=== PATIENT | female | born 1935 | race Caucasian/White ===

== ENCOUNTER 2022-03-29 08:24 | Outpatient (CLI) | payer SELFPAY ==
--- NOTE | 2022-03-29 08:34 | MM_ITS ---
WS: [id number] DIAGNOSTIC BILATERAL DIGITAL BREAST TOMOSYNTHESIS MAMMOGRAPHY WITH CAD Bilateral breast ultrasound, limited HISTORY: breast mass right COMPARISON: None available. TECHNIQUE: Bilateral craniocaudad, mediolateral oblique, and mediolateral views are submitted with to daniel and AME. Computer aided detection utilized. Breast composition: There are scattered areas of fibroglandular density. There is a dense spiculated mass extending to the skin in the upper outer quadrant of the RIGHT breast. Mass measures approximate ly 3.7 x 2.5 cm. There are a few scattered punctate calcifications within the spiculated mass. There is an additional spiculated mass along the posterior LEFT chest wall seen best on the LEFT CC project ion. Only a very small portion of this mass is identified but is spiculated and of increased density. The nipple is retracted. This mammographic evaluation is very difficult and limited due to the patient's kyphosis. No lymph no yu are identified towards the axilla. Bilateral breast ultrasound, limited. RIGHT breast: Lobulated soft tissue mass at 11:00, 1 cm the nipple. This mass is hypoechoic with angu lar borders extending through the skin surface. Increased vascularity throughout the mass. Mass measu res at least 3.5 x 2.2 x 3.1 cm and extends to the posterior chest wall. There is an additional abnor mal lymph node in the RIGHT axilla measuring 1.7 x 2.4 x 2.1 cm. There is at least one and possibly 2 abnormal lymph nodes. LEFT breast: Incompletely visualized soft tissue mass seen on mammography corresponds to a hypoechoic irregular mass with increased vascularity at 12:00, 1 cm from the nipple. This mass measures 3.0 x 1 .7 x 2.5 cm. This also is very close to the skin surface towards 11:00. No LEFT axillary abnormal lym ph nodes. MM/[place] [id number] IMPRESSION: BI-RADS: 5-Highly Suggestive of Malignancy FOLLOW UP: Biopsy Recommended Bilateral breast masses highly suspicious for advanced breast cancer. Suspiciou s RIGHT axillary lymph node for metastatic disease. These can be further evalua nelsy by oncology. Ultrasound-guided biopsy can be performed. Notified Notified Bárbara Pimentel DO at 03/29/2022 1:40 PM.
== END 2022-03-29 08:25 | disposition home or self-care (01) ==
PROVIDERS: Visit Provider Surgery
DX: N63.11 Unspecified lump in the right breast, upper outer quadrant (principal); N63.25 Unspecified lump in the left breast, overlapping quadrants
CPT/HCPCS: 76642; 77062

== ENCOUNTER → 2022-04-18 15:09 | Outpatient (BNVA) | payer MEDICARE, SELFPAY | PROVIDERS: Visit Provider Family Medicine | DX: Z76.89 Persons encountering health services in other specified circumstances (principal); N63.10 Unspecified lump in the right breast, unspecified quadrant; N63.20 Unspecified lump in the left breast, unspecified quadrant; Z79.899 Other long term (current) drug therapy | CPT/HCPCS: 80053; 85025 ==

== ENCOUNTER 2022-04-21 10:57 | Outpatient (CLI) | payer MEDICARE, SELFPAY ==
[2022-04-21 12:01] LABS: Basophils # 0.1 10^3/uL (0.0-0.1); Eosinophils # 0.2 10^3/uL (0.0-0.8); Eosinophils % 2.5 %; Hematocrit 44.4 % (37.0-47.0); Lymphocytes # 1.7 10^3/uL (0.8-4.8); Lymphocytes % 22.2 %; Mean Corpuscular HGB Conc 31.5 g/dL (30.0-36.0); Mean Corpuscular Hemoglobin 30.4 pg (28.0-34.0); Mean Corpuscular Volume 96.3 fl (81-99); Mean Platelet Volume 10.4 fL (7.4-10.4); Monocytes # 0.8 10^3/uL (0.2-0.9); Monocytes % 10.6 %; Neutrophils # 4.88 10^3/uL (1.8-7.7); Neutrophils % 63.6 %; Nucleated Red Blood Cells % 0 %; Platelet Count 290 10^3/cmm (130-400); Red Blood Count 4.61 10^6/uL (4.1-5.3); Red Cell Distribution Width 12.9 % (12.1-15.1); White Blood Count 7.7 10^3/uL (4.0-10.0)
[2022-04-21 12:24] LABS: Alanine Aminotransferase 9 U/L (0-33); Alkaline Phosphatase 100 U/L (35-105); Anion Gap 13.2 (5-19); Aspartate Amino Transferase 16 U/L (0-32); Blood Urea Nitrogen 14 mg/dL (8-23); Calcium 9.3 mg/dL (8.5-10.5); Carbon Dioxide 27 mmol/L (22-29); Chloride 104 mmol/L (98-107); Globulin 3.2 g/dL (1.3-4.6); Glucose 91 mg/dL (65-115); Osmolality Calculated 290 mOsm/kg (285-295); Potassium 4.2 mmol/L (3.5-5.1); Sodium 140 mmol/L (136-145); Total Bilirubin 0.4 mg/dL (0.15-1.2); Total Protein 7.2 g/dL (6.6-8.7)
== END 2022-04-21 10:58 | disposition home or self-care (01) ==
LOC: LAB 11:02
PROVIDERS: PCP Family Medicine; Visit Provider Family Medicine
DX: Z76.89 Persons encountering health services in other specified circumstances (principal); N63.10 Unspecified lump in the right breast, unspecified quadrant; N63.20 Unspecified lump in the left breast, unspecified quadrant
CPT/HCPCS: 80053; 85025

== ENCOUNTER 2022-04-27 11:01 | Outpatient (CLI) | payer MEDICARE, SELFPAY ==
--- NOTE | 2022-04-27 | US_ITS ---
WS: [id number] ULTRASOUND-GUIDED RIGHT BREAST BIOPSY CLINICAL INFORMATION: RIGHT breast mass. RIGHT axillary biopsy. FINDINGS: The procedure including risks, benefits, and complications were discussed with the patient who agreed to proceed. Using sterile technique patient was prepped and draped in the usual sterile fashion. Aft er 1% lidocaine utilizing real-time ultrasound guidance 5 14-gauge cores were obtained of the RIGHT b reast lesion at the 11 o'clock position. Subsequently a titanium clip was placed in the biopsy cavity . [place] DigitalurMark Top cone marker. Next 2 samples were obtained of the RIGHT axillary mass. LOAG Ribbon biopsy marker Pathology demonstrates A. 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 - Johnson Huerta grade 2 (score 6). - Breast profile has been performed and will be reported separately. B. Breast, right axilla mass , ultrasound-guided biopsy: - Invasive ductal carcinoma. - Johnson Huerta grade 2 (score 6). - Right axilla is involved with carcinoma. C. Breast, left breast mass, 12:00, 1 cm from nipple , ultrasound-guided biopsy: - Invasive ductal carcinoma with intraluminal microcalcifications. - Johnson Huerta grade 2 (score 6). - Breast profile has been performed and will be reported separately. D. Breast, left breast mass, 2:00, 1 cm from nipple , ultrasound-guided biopsy: - Invasive ductal carcinoma. - Johnson Huerta grade 1 (score 4). US/[place] [id number] IMPRESSION: 1. Uncomplicated ultrasound-guided RIGHT breast and RIGHT axillary biopsy. 2. Ultrasound-guided biopsy LEFT breast mass at the 12:00 and 2:00 positions. 3. The pathology demonstrates: A. 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 B. Breast, right axilla mass - Invasive ductal carcinoma. C. Breast, left breast mass, 12:00, 1 cm from nipple - Invasive ductal carcinoma with intraluminal microcalcifications. D. Breast, left breast mass, 2:00, 1 cm from nipple - Invasive ductal carcinoma. RECOMMEND BREAST SURGERY CONSULTATION. BI-RADS: 6-Known Biopsy-Proven Malignancy FOLLOW UP: Surgical Biopsy Recommended
--- NOTE | 2022-04-27 11:32 | US_ITS ---
WS: [id number] ULTRASOUND-GUIDED RIGHT BREAST BIOPSY CLINICAL INFORMATION: RIGHT breast mass. RIGHT axillary biopsy. FINDINGS: The procedure including risks, benefits, and complications were discussed with the patient who agreed to proceed. Using sterile technique patient was prepped and draped in the usual sterile fashion. Aft er 1% lidocaine utilizing real-time ultrasound guidance 5 14-gauge cores were obtained of the RIGHT b reast lesion at the 11 o'clock position. Subsequently a titanium clip was placed in the biopsy cavity . UGEurMark Top portable track line marker. Next 2 samples were obtained of the RIGHT axillary mass. [employer] Ribbon biopsy marker Pathology demonstrates A. 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 - Johnson Huerta grade 2 (score 6). - Breast profile has been performed and will be reported separately. B. Breast, right axilla mass , ultrasound-guided biopsy: - Invasive ductal carcinoma. - Johnson Huerta grade 2 (score 6). - Right axilla is involved with carcinoma. C. Breast, left breast mass, 12:00, 1 cm from nipple , ultrasound-guided biopsy: - Invasive ductal carcinoma with intraluminal microcalcifications. - Johnson Huerta grade 2 (score 6). - Breast profile has been performed and will be reported separately. D. Breast, left breast mass, 2:00, 1 cm from nipple , ultrasound-guided biopsy: - Invasive ductal carcinoma. - Johnson Huerta grade 1 (score 4). US/[place] [id number] IMPRESSION: 1. Uncomplicated ultrasound-guided RIGHT breast and RIGHT axillary biopsy. 2. Ultrasound-guided biopsy LEFT breast mass at the 12:00 and 2:00 positions. 3. The pathology demonstrates: A. 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 B. Breast, right axilla mass - Invasive ductal carcinoma. C. Breast, left breast mass, 12:00, 1 cm from nipple - Invasive ductal carcinoma with intraluminal microcalcifications. D. Breast, left breast mass, 2:00, 1 cm from nipple - Invasive ductal carcinoma. RECOMMEND BREAST SURGERY CONSULTATION. BI-RADS: 6-Known Biopsy-Proven Malignancy FOLLOW UP: Surgical Biopsy Recommended
--- NOTE | 2022-04-27 11:32 | US_ITS ---
WS: [id number] ULTRASOUND-GUIDED RIGHT BREAST BIOPSY CLINICAL INFORMATION: RIGHT breast mass. RIGHT axillary biopsy. FINDINGS: The procedure including risks, benefits, and complications were discussed with the patient who agreed to proceed. Using sterile technique patient was prepped and draped in the usual sterile fashion. Aft er 1% lidocaine utilizing real-time ultrasound guidance 5 14-gauge cores were obtained of the RIGHT b reast lesion at the 11 o'clock position. Subsequently a titanium clip was placed in the biopsy cavity . iPointerurMark Top pattern marker. Next 2 samples were obtained of the RIGHT axillary mass. [employer] Ribbon biopsy marker Pathology demonstrates A. 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 - Johnson Huerta grade 2 (score 6). - Breast profile has been performed and will be reported separately. B. Breast, right axilla mass , ultrasound-guided biopsy: - Invasive ductal carcinoma. - Jhonson Huerta grade 2 (score 6). - Right axilla is involved with carcinoma. C. Breast, left breast mass, 12:00, 1 cm from nipple , ultrasound-guided biopsy: - Invasive ductal carcinoma with intraluminal microcalcifications. - Johnson Huerta grade 2 (score 6). - Breast profile has been performed and will be reported separately. D. Breast, left breast mass, 2:00, 1 cm from nipple , ultrasound-guided biopsy: - Invasive ductal carcinoma. - Johnson Huerta grade 1 (score 4). US/US biopsy lymph node breast/ax IMPRESSION: 1. Uncomplicated ultrasound-guided RIGHT breast and RIGHT axillary biopsy. 2. Ultrasound-guided biopsy LEFT breast mass at the 12:00 and 2:00 positions. 3. The pathology demonstrates: A. 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 B. Breast, right axilla mass - Invasive ductal carcinoma. C. Breast, left breast mass, 12:00, 1 cm from nipple - Invasive ductal carcinoma with intraluminal microcalcifications. D. Breast, left breast mass, 2:00, 1 cm from nipple - Invasive ductal carcinoma. RECOMMEND BREAST SURGERY CONSULTATION. BI-RADS: 6-Known Biopsy-Proven Malignancy FOLLOW UP: Surgical Biopsy Recommended
--- NOTE | 2022-04-27 11:32 | US_ITS ---
WS: [id number] ULTRASOUND-GUIDED LEFT BREAST BIOPSY CLINICAL INFORMATION: masses bilat breasts COMPARISON: None. FINDINGS: The procedure including risks, benefits, and complications were discussed with the patient who agreed to proceed. Using sterile technique patient was prepped and draped in the usual sterile fashion. Aft er 1% lidocaine utilizing real-time ultrasound guidance 3 14-gauge cores were obtained of the LEFT br east lesion at the 12 o'clock position. Subsequently a titanium clip was placed in the biopsy cavity. SecurMark biopsy marker Top Hat. Next, after 1% lidocaine, utilizing ultrasound guidance, 3 14-gauge cores were obtained of the LEFT b reast lesion at the 2:00 position.Subsequently a titanium clip was placed in the biopsy cavity. BARD biopsy marker Ribbon. ULTRASOUND-GUIDED RIGHT BREAST BIOPSY CLINICAL INFORMATION: RIGHT breast mass. RIGHT axillary biopsy. FINDINGS: The procedure including risks, benefits, and complications were discussed with the patient who agreed to proceed. Using sterile technique patient was prepped and draped in the usual sterile fashion. Aft er 1% lidocaine utilizing real-time ultrasound guidance 5 14-gauge cores were obtained of the RIGHT b reast lesion at the 11 o'clock position. Subsequently a titanium clip was placed in the biopsy cavity . SecurMark Top memorial marker designer. Next 2 samples were obtained of the RIGHT axillary mass. [place] Ribbon biopsy marker Pathology demonstrates A. 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 - Johnson Huerta grade 2 (score 6). - Breast profile has been performed and will be reported separately. B. Breast, right axilla mass , ultrasound-guided biopsy: - Invasive ductal carcinoma. - Johnson Huerta grade 2 (score 6). - Right axilla is involved with carcinoma. C. Breast, left breast mass, 12:00, 1 cm from nipple , ultrasound-guided biopsy: - Invasive ductal carcinoma with intraluminal microcalcifications. - Johnson Huerta grade 2 (score 6). - Breast profile has been performed and will be reported separately. D. Breast, left breast mass, 2:00, 1 cm from nipple , ultrasound-guided biopsy: - Invasive ductal carcinoma. - Johnson Huerta grade 1 (score 4). US/[place] [id number] IMPRESSION: 1. Uncomplicated ultrasound-guided RIGHT breast and RIGHT axillary biopsy. 2. Ultrasound-guided biopsy LEFT breast mass at the 12:00 and 2:00 positions. 3. The pathology demonstrates: A. 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 B. Breast, right axilla mass - Invasive ductal carcinoma. C. Breast, left breast mass, 12:00, 1 cm from nipple - Invasive ductal carcinoma with intraluminal microcalcifications. D. Breast, left breast mass, 2:00, 1 cm from nipple - Invasive ductal carcinoma. RECOMMEND BREAST SURGERY CONSULTATION. BI-RADS: 6-Known Biopsy-Proven Malignancy FOLLOW UP:
[2022-04-28 13:49] LABS: Lymphoma Profile (BBPL) See Report
[2022-05-02 12:04] LABS: Breast Profile ER,PR,HER2,Ki-6 See Report
== END 2022-04-27 11:02 | disposition home or self-care (01) ==
LOC: RAD 11:05
PROVIDERS: PCP Family Medicine; Visit Provider Emergency Medicine
DX: R92.8 Other abnormal and inconclusive findings on diagnostic imaging of breast (principal); C50.411 Malignant neoplasm of upper-outer quadrant of right female breast; C50.812 Malignant neoplasm of overlapping sites of left female breast
CPT/HCPCS: 19083; 19084; 38505; 76942; 88184; 88185; 88305; 88361; 88374

== ENCOUNTER → 2022-05-04 14:08 | Outpatient (BNVA) | payer MEDICARE, SELFPAY | PROVIDERS: PCP Family Medicine; Visit Provider Internal Medicine Hematology & Oncology | DX: C50.811 Malignant neoplasm of overlapping sites of right female breast (principal); C50.812 Malignant neoplasm of overlapping sites of left female breast; Z17.0 Estrogen receptor positive status [ER+]; Z90.13 Acquired absence of bilateral breasts and nipples; Z79.818 Long term (current) use of other agents affecting estrogen receptors and estrogen levels | CPT/HCPCS: 99204 ==

== ENCOUNTER 2022-06-03 09:53 | Oncology outpatient (recurring) (ONCR) | payer MEDICARE, SELFPAY ==
[2022-06-03 10:31] LABS: Basophils # 0.1 10^3/uL (0.0-0.1); Basophils % 0.8 %; Eosinophils # 0.1 10^3/uL (0.0-0.8); Eosinophils % 1.6 %; Hematocrit 41.5 % (37.0-47.0); Lymphocytes # 1.4 10^3/uL (0.8-4.8); Lymphocytes % 21.9 %; Mean Corpuscular HGB Conc 31.3 g/dL (30.0-36.0); Mean Corpuscular Hemoglobin 29.7 pg (28.0-34.0); Mean Corpuscular Volume 94.7 fl (81-99); Mean Platelet Volume 10.4 fL (7.4-10.4); Monocytes # 0.5 10^3/uL (0.2-0.9); Monocytes % 7.7 %; Neutrophils # 4.24 10^3/uL (1.8-7.7); Neutrophils % 67.7 %; Nucleated Red Blood Cells % 0 %; Platelet Count 316 10^3/cmm (130-400); Red Blood Count 4.38 10^6/uL (4.1-5.3); Red Cell Distribution Width 12.8 % (12.1-15.1); White Blood Count 6.3 10^3/uL (4.0-10.0)
[2022-06-03 10:45] LABS: Alanine Aminotransferase 11 U/L (0-33); Albumin Level 3.9 g/dL (3.5-5.2); Alkaline Phosphatase 89 U/L (35-105); Anion Gap 12.2 (5-19); Aspartate Amino Transferase 15 U/L (0-32); Blood Urea Nitrogen 18 mg/dL (8-23); Calcium 9.2 mg/dL (8.5-10.5); Carbon Dioxide 28 mmol/L (22-29); Chloride 104 mmol/L (98-107); Globulin 2.7 g/dL (1.3-4.6); Glucose 130 mg/dL (65-115); Osmolality Calculated 294 mOsm/kg (285-295); Potassium 4.2 mmol/L (3.5-5.1); Sodium 140 mmol/L (136-145); Total Bilirubin 0.3 mg/dL (0.15-1.2); Total Protein 6.6 g/dL (6.6-8.7)
== END 2022-06-29 23:59 | disposition home or self-care (01) ==
PROVIDERS: PCP Family Medicine; Visit Provider Internal Medicine Hematology & Oncology
DX: C50.811 Malignant neoplasm of overlapping sites of right female breast; C50.812 Malignant neoplasm of overlapping sites of left female breast; Z17.0 Estrogen receptor positive status [ER+]; C77.3 Secondary and unspecified malignant neoplasm of axilla and upper limb lymph nodes; Z79.811 Long term (current) use of aromatase inhibitors
CPT/HCPCS: 36415; 80053; 85025; 99214

== ENCOUNTER → 2022-06-21 10:01 | Outpatient (BNVA) | payer MEDICARE, SELFPAY | PROVIDERS: PCP Family Medicine; Visit Provider Surgery | DX: C50.911 Malignant neoplasm of unspecified site of right female breast (principal); C50.912 Malignant neoplasm of unspecified site of left female breast; Z17.0 Estrogen receptor positive status [ER+]; C50.811 Malignant neoplasm of overlapping sites of right female breast; C50.812 Malignant neoplasm of overlapping sites of left female breast | CPT/HCPCS: 99213 ==

== ENCOUNTER 2022-07-14 16:50 | Inpatient (IN) | payer MEDICARE, SELFPAY ==
[2022-07-14] VITALS (17 sets, daily range): BP systolic 98–178; BP diastolic 56–87; PULSE 52–84; RESP 14–20; TEMP 36.2–36.6; O2SAT 94–100
--- NOTE | 2022-07-14 07:49 | NM_ITS ---
WS: [id number] SENTINEL NODE TECHNIQUE: LEFT sentinel node injection CLINICAL INFORMATION: left sentinel lymph node biopsy COMPARISON: None. PROCEDURE: The procedure including risks, benefits, and complications were discussed; the patient agr eed to proceed. Patient was prepped and draped in usual sterile fashion. Subsequently, 1 aliquots of filtered technetium 99m tilmanocept lymphoseek was injected into the subcutaneous soft tissues upper outer breast. A total dose of 1.09 mCi was administered. Patient tolerated the procedure well with no immediate complications. AL/AL sentinel node inject [id number] IMPRESSION: Uncomplicated LEFT breast sentinel node injection with a total dose of 1.09 mCi .
--- NOTE | 2022-07-14 08:38 | PC.NURSE ---
patient was injected with 1.09 mCi Tc99m Tilmanocept Lymphoseek at 0825 in the upper right quadrant of the left breast. approximately 1-2:00 position.
--- NOTE | 2022-07-14 08:41 | P.ANESASSM_ITS ---
Pre-Anesthetic Assessment Height/Weight: Height 1.6 m Weight 46.72 kg Preop Diagnosis: Bilateral breast cancer Operation Date: 07/14/22 11:25 Proposed Procedures p 43814, 73240, 23995, 42689, 79584 bilateral mastectomy, right axillary node diction, left sentinel node bx Modified radical on the right and simple on the left, C50.911,C50.912,Z17.0(Bilateral) - Broderick Salgado DO s Axillary Node Dissection(Right) - Broderick Salgado DO s Sentinal Lymph Node Biopsy(Left) - Broderick Salgado DO Familial anesthetic complications: none Was Beta Krysta taken within 24 hours: N/A Was Clonidine taken within 24 hours: N/A Last intake: > 8hrs Social No alcohol and No tobacco Exam alert, oriented x 3, clear to auscultation bilaterally and regular rate & rhythm Airway Mallampati: Class II Dentition: false GI Gastroesophageal Reflux Disease and Peptic Ulcer Disease partial gastrectomy [facility] b/l breast cancer Anesthetic Plan ASA status: 3 Anesthesia: General Risk of > 500 ml blood loss (7ml/kg in children): No Medications/Allergies Home Medications Medication Instructions Recorded Confirmed Last Taken Type anastrozole 1 mg tablet (Arimidex) 1 mg PO DAILY 2 months #90 tabs 05/04/22 07/14/22 07/13/22 Rx calcium carbonate 600 mg calcium 600 mg PO DAILY 05/16/22 07/14/22 07/13/22 History (1,500 mg) tablet (Calcium) cholecalciferol (vitamin D3) 125 125 mcg PO DAILY 05/16/22 07/14/22 07/13/22 History mcg (5,000 unit) capsule omeprazole 20 mg capsule,delayed 20 mg PO DAILY #90 caps 05/16/22 07/14/22 07/13/22 Rx release hydrocodone 7.5 mg-acetaminophen 1 tab PO BID pain 30 days #60 tabs 06/06/22 07/13/22 07/13/22 Rx 325 mg tablet Allergies Allergy/AdvReac Type Severity Reaction Status Date / Time Penicillins Allergy ALGY-Rash Verified 07/13/22 16:42 [facility] [place] Anesthesia Medical History 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
[2022-07-14] MEDS: sodium chloride 0.9% 1,000 ML 30 ML IV (08:55)
--- NOTE | 2022-07-14 10:28 | W.PM.OPSUD ---
Surgery/Procedure H&P Update DATE OF PROCEDURE: July 14, 2022 DATE H&P PERFORMED: 06/21/22 PREOP DIAGNOSIS: Bilateral breast cancer PLANNED PROCEDURE: Operation Date: 07/14/22 11:25 Proposed Procedures p 23094, 33537, 33629, 49738, 67222 bilateral mastectomy, right axillary node diction, left sentinel node bx Modified radical on the right and simple on the left, C50.911,C50.912,Z17.0(Bilateral) - DO ke Hauser Axillary Node Dissection(Right) - DO ke Hauser Sentinal Lymph Node Biopsy(Left) - Broderick Salgado DO
[2022-07-14] MEDS: vancomycin 1,000 MG in sodium chloride 0.9% 250 ML 250 MG IV (10:48)
[2022-07-14] MEDS: isosulfan blue 10 mg/mL SDV 5mL SUBCUT (11:15)
--- NOTE | 2022-07-14 13:36 | PM.OP ---
Operative Report Date of procedure: July 14, 2022 Pre-op diagnosis: Preop Diagnosis Bilateral breast cancer Post-op diagnosis: same Procedure done: Right modified radical mastectomy and left simple mastectomy with sentinel lymph node biopsy Specimens removed/disposition: Left breast and left sentinel lymph node Right breast and axillary contents Surgeon: Dr. Broderick Salgado DO Anesthesia: General Estimated blood loss (mL): 100 Complications: None apparent Brief History: This very pleasant 86-year-old female with known bilateral breast cancer. She also has an exophytic mass on the right breast and nipple inversion on the left. She was treated with anastrozole preoperatively in hopes of getting negative margins. The right breast mass went all the way to the chest wall on imaging. Right modified radical mastectomy and left mastectomy with sentinel lymph node biopsy was indicated. The risks and benefits were explained and documented. Procedure: The patient was taken to the operating room and intubated under general anesthesia after IV antibiotic had been administered the right chest and arm was prepped and draped in a sterile manner. 1% lidocaine with epinephrine was used to anesthetize the skin prior to incision. Using a 15 blade an elliptical Roberto incision was made around the right nipple areolar complex incorporating the lumpectomy scar and dermis was divided with electrocautery. Using electrocautery skin flaps were raised superiorly up to the clavicle, inferiorly to the inframammary line, medially up to the lateral edge of sternum and laterally up to the latissimus dorsi in the avascular plane. Using electrocautery the breast along with the pectoral fascia was dissected off the pectoralis muscle starting superiorly and medially and moving inferiorly and laterally. A short stitch was placed superiorly and long stitch was placed laterally using 2-0 silk suture. The lateral edge of the breast was freed along with the axillary tail . There were couple of bleeding muscular branches from the pectoral muscle which were controlled with cautery. The clavipectoral fascia was incised along the edge of the pectoralis major muscle identify the major and minor muscle. There were no palpable Catarino's nodes. The dissection was carried posteriorly to the latissimus dorsi muscle, the long thoracic nerve was identified along the serratus anterior muscle along with the lateral pectoral bundle. The pectoralis minor head was retracted superiorly to identify the axillary vein. Careful dissection was performed around the axillary vein, posterior to the pectoralis minor muscle to free the level II axillary nodes. The dissection was carried laterally, The thoracodorsal neurovascular bundle was identified posteriorly. The lymph nodes between these 2 nerves were freed. Specimen was removed and passed off en bloc. Using a 15 blade an elliptical incision was made around the left nipple areolar complex and dermis was divided with electrocautery. Skin flaps were raised superiorly up to the clavicle, inferiorly to the inframammary line, medially up to the lateral edge of sternum and laterally up to the latissimus dorsi in the avascular plane. Using electrocautery the breast along with the pectoral fascia was dissected off the pectoralis muscle starting superiorly and medially and moving inferiorly and laterally. A short stitch was placed superiorly and long stitch was placed laterally using 2-0 silk on the partially excised breast specimen. The lateral edge of the breast was freed along with the axillary tail and the specimen was removed entirely from the operative field. There were couple of bleeding muscular branches from the pectoral muscle which were controlled with cautery. The wound was irrigated with warm water and the site was reexamined to ensure adequate hemostasis. There was no active bleeding noted. A stab incision was made laterally and 19 [place] [employer] Pablo drain was placed along the inframammary fold and attached to bulb suction. The skin flaps appeared healthy and of adequate thickness. The wounds were irrigated with warm water and the site was reexamined to ensure adequate hemostasis. There was no active bleeding noted. A stab incision was made laterally and 19 [place] [employer] Pablo drain was placed along the inframammary fold and attached to bulb suction . The skin flaps appeared healthy and of adequate thickness. The dermis was approximated using running 3-0 Vicryl suture and the skin was closed using running subcuticular 4-0 Monocryl suture and Dermabond. Fluffs and a surgical bra was used for pressure dressing. Patient was transferred to the recovery room in stable condition.
[2022-07-14] MEDS: fentaNYL 50 mcg/mL INJ 2mL IVP (14:10)
[2022-07-14] MEDS: HYDROcodone-acetaminophen 7.5-325 mg Tablet 1 TAB PO (14:55)
--- NOTE | 2022-07-14 15:57 | ANE.PACU2 ---
Inpatient post-anesthesia follow up: Airway intact: Yes Vital signs: Temperature 97.2 F Pulse Rate 66 Respiratory Rate 16 Blood Pressure 132/56 Pulse Oximetry 98 Oxygen Delivery Me thod Room Air Oxygen Flow Rate 6 Fraction of Inspir ed Oxygen Hydration adequate: Yes Nausea and vomiting: No Pain level: 1 Mental status: Baseline
[2022-07-14] MEDS: docusate sodium 100 mg Capsule PO (17:11)
[2022-07-14] MEDS: heparin 5,000 unit/mL INJ 1 mL 5000 UNIT SUBCUT (17:11)
--- NOTE | 2022-07-14 17:20 | PC.NURSE ---
REPORT GIVEN TO NURSE TAKING CARE OF ROOM 277 BY RICKY DE LA FUENTE RN. PT MOVED VIA STRETCHER BY MYSELF AND ANOTHER NURSE AT 1700 TO ROOM 277 BED 2 AND CARE TURNED OVER.
[2022-07-14] MEDS: HYDROcodone-acetaminophen 5-325 mg Tablet 1 TAB PO (23:42)
[2022-07-15] VITALS: BP 126/75; PULSE 80; RESP 16; TEMP 36.7; O2SAT 97
[2022-07-15 03:55] VITALS: BP 103/64; PULSE 78; RESP 16; TEMP 37.3; O2SAT 96
--- NOTE | 2022-07-15 03:56 | PC.NURSE ---
Patients urine was blue. Nurse was notified.
[2022-07-15] MEDS: heparin 5,000 unit/mL INJ 1 mL 5000 UNIT SUBCUT (06:05)
[2022-07-15] MEDS: docusate sodium 100 mg Capsule PO (07:59)
[2022-07-15] MEDS: HYDROcodone-acetaminophen 5-325 mg Tablet 1 TAB PO ×2 (07:59→15:01)
[2022-07-15 08:00] VITALS: BP 138/68; PULSE 79; RESP 17; TEMP 36.8; O2SAT 96
[2022-07-15 12:00] VITALS: BP 138/64; PULSE 77; RESP 18; TEMP 37.1; O2SAT 97
--- NOTE | 2022-07-15 13:31 | P.DS_ITS ---
Discharge Providers Date of Admission: 07/14/22 16:50 Date of Discharge: July 15, 2022 Attending Provider at Admission: Broderick Salgado DO Attending Provider at Discharge: Broderick Salgado DO Primary Care Provider: Eleuterio Morgan DO Reason for Visit Reason for Visit: C50.911, C50.912, Z17.0 Brief History: Breast cancer Hospital Course Hospital Course There is a very pleasant 86-year-old female who was found to have bilateral breast cancer. She underwent a right modified radical mastectomy and a left mastectomy with sentinel lymph node biopsy. She stayed overnight for pain control. She is doing well in the morning and was discharged home in good condition Physical Exam Narrative: General: No acute distress, awake alert and oriented x3 Incisions intact without erythema or exudate Drain serosanguineous Discharge Data Studies Completed and Pending Completed Studies During Hospitalization Category Date Time Status NM sentinel node inject [id number] Routine Nuc Med 07/14/22 07:49 Completed Pending at discharge Category Date Time Status Pathology: Surgical [PTH] Routine Pth 07/14/22 13:41 Received Radiology Impressions [place] Node 07/14/22 07:49 IMPRESSION: Uncomplicated LEFT breast sentinel node injection with a total dose of 1.09 mCi. Procedures Performed Right modified radical mastectomy and left mastectomy with sentinel lymph node biopsy Vitals Last Vital Signs Temp 98.8 F 07/15/22 12:00 Pulse 77 07/15/22 12:00 Resp 18 07/15/22 12:00 BP 138/64 07/15/22 12:00 Pulse Ox 97 07/15/22 12:00 O2 Del Method 07/15/22 12:00 O2 Flow Rate 6 07/14/22 20:00 Discharge Plan Discharge Patient Disposition: Home Condition: Stable Prescriptions: New DOK 100 mg capsule 100 mg PO BID Qty: 20 0RF hydrocodone-acetaminophen 7.5-325 mg tablet 1 tab PO Q6H PRN (Reason: pain) Qty: 28 0RF Continued calcium carbonate [Calcium 600] 600 mg calcium (1,500 mg) tablet 600 mg PO DAILY cholecalciferol (vitamin D3) 125 mcg (5,000 unit) capsule 125 mcg PO DAILY omeprazole 20 mg capsule,delayed release(DR/EC) 20 mg PO DAILY Qty: 90 1RF anastrozole [Arimidex] 1 mg tablet 1 mg PO DAILY 60 Days Qty: 90 0RF Held hydrocodone-acetaminophen 7.5-325 mg tablet 1 tab PO BID 30 Days Qty: 60 0RF Hold Instructions: Resume on 07/22/22. Rx Instructions: Take 1/2 to 1 tab by mouth two times a day for pain. Discharge Orders: Discharge Order (Routine); Ordered 07/15/22 Ordered By: Broderick Salgado Referrals: Eleuterio Morgan DO [Primary Care Provider] - 4-7 days Broderick Salgado DO [Physician] - 2 weeks Discharge Diet: Advance as tolerated Discharge Activity: Resume usual activity Patient Instructions: Post Anesthesia Care Activity Restrictions/Additional Instructions: Do not soak incisions underwater for 2 weeks. Shower daily. Discharge Attestations Time Spent in Discharge Care*: less than 30 min Quality Metrics Clinical Quality Measures [ No reported AMI, CVA or VTE this stay] Coding Level of Care Code Acute [facility] DC note
[2022-07-19 08:15] LABS: Breast Profile ER,PR,HER2,Ki-6 See Report
== END 2022-07-15 15:13 | disposition home or self-care (01) | DRG 581 ==
LOC: MEDSURG 07-15 00:27
PROVIDERS: Admitting Provider Surgery; PCP Family Medicine; Visit Provider Surgery
PROC: 07B60ZX Excision of Left Axillary Lymphatic, Open Approach, Diagnostic (ICD-10-PCS; CPT 19303; principal; 2022-07-14 11:15)
PROC: 07B60ZX Excision of Left Axillary Lymphatic, Open Approach, Diagnostic (ICD-10-PCS; 2022-07-14 11:15)
PROC: 07B60ZX Excision of Left Axillary Lymphatic, Open Approach, Diagnostic (ICD-10-PCS; 2022-07-14 11:15)
DX: C50.812 Malignant neoplasm of overlapping sites of left female breast (principal); C50.811 Malignant neoplasm of overlapping sites of right female breast; Z17.0 Estrogen receptor positive status [ER+]; K27.9 Peptic ulcer, site unspecified, unspecified as acute or chronic, without hemorrhage or perforation; Z79.811 Long term (current) use of aromatase inhibitors; Z79.891 Long term (current) use of opiate analgesic
CPT/HCPCS: 38792; 88307; 88309; 88331; 88361; 88374; 96372; A9520; J0131; J1100; J1644; J2370; J2405; J2704; J3010; J3370; J3490; J7030; J7050; Q9968

== ENCOUNTER 2022-07-19 11:48 | Emergency (ER) | payer MEDICARE, SELFPAY ==
[2022-07-19 12:01] VITALS: BP 127/76; PULSE 85; RESP 16; TEMP 36.7; O2SAT 99
--- NOTE | 2022-07-19 12:19 | W.ED.GIBLEED ---
HPI - GI Bleed General: Chief complaint: GI Bleed Stated complaint: passing blood Time Seen by Provider: 07/19/22 12:07 Source: patient and family Mode of arrival: ambulatory Limitations: no limitations History of Present Illness: This patient's here at the behest of her family because they are concerned she is not had a bowel movement for 6 days. She apparently had a mastectomy approximately 6 days ago has been taking opiates for pain control. They apparently of been using an oral stool softener but she is still not had a bowel movement for 6 days and feels pressure. There also has been a little bit of rectal bleeding because of what the perceived is due to her attempting to push the bowel movement out. She denies abdominal pain nausea vomiting and states she has been eating and drinking normally. No fevers. No prior history of significant constipation problems. She had a prior gastrectomy for peptic ulcer disease many years ago but no other recent abdominal surgeries. She denies any other constitutional complaints at this time. Relieving factors: none Context: medication/supplement use Associated symptoms: Denies abdominal pain, chills, easy bruising, fever(s), headache(s), nausea, rash or vomiting Review of Systems Const: Denies: fever(s) or chills Eyes: Denies: change in vision ENMT: Denies: throat pain, odynophagia, nasal discharge or nasal congestion Card: Denies: chest pain, palpitations or irregular heart rhythm Resp: Denies: dyspnea or non-productive cough GI: Reports: constipation; Denies: abdominal pain, nausea, vomiting, hematochezia or melena : Denies: flank pain, difficulty voiding, dysuria or urinary frequency Musc: Denies: neck pain, back pain, extremity pain or extremity swelling Skin/Breast: Denies: rash Neuro: Denies: headache(s), numbness in extremities or weakness in extremities Abdirahman/Lymph: Denies: easy bruising or easy bleeding PFSH ED PFSH: Medical History 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, estrogen receptor positive Mass of right breast Surgical History History of partial gastrectomy Hx of tonsillectomy Social History Smoking and tobacco status: never smoked Smoking risk assessment/counseling performed?: No Alcohol intake: never Desire information about alcohol rehabilitation?: No Counseling given: No Desire information about substance/drug rehabilitation?: No Counseling given: No Female Reproductive History: Spontaneous abortions: No Physical Exam Narrative: EXAM NARRATIVE: She appears comfortable. She makes good eye contact, answers questions in a goal-directed fashion. Const: COMMON NORMALS: no acute distress, average body habitus and patient oriented x3 GENERAL APPEARANCE: cooperative and comfortable HENMT: COMMON NORMALS: normocephalic, Normal nasal mucous membranes and turbinates present, moist oral mucous membranes and oropharynx normal HEAD & SCALP: normocephalic NOSE: Normal nasal mucous membranes and turbinates present Eye: COMMON NORMALS: Equal, round and reactive pupils present, EOMs intact bilaterally and conjunctivae normal CONJUNCTIVA: Yes conjunctivae normal PUPIL: Yes Equal, round and reactive pupils present Neck/C-Spine: COMMON NORMALS: full ROM, no JVD and No carotid bruits Chest: OTHER: Post mastectomy dressing Resp: COMMON NORMALS: normal respiratory effort, No use of accessory muscles and clear to auscultation bilaterally AUSCULTATION: clear to auscultation bilaterally Cardio: COMMON NORMALS: no JVD, regular rate, regular rhythm, No murmurs present (Cardio) and Peripheral pulses 2+ throughout RATE: regular rate RHYTHM: regular rhythm PERIPHERAL PULSES: Peripheral pulses 2+ throughout GI: COMMON NORMALS: Normal to inspection, nondistended, normoactive bowel sounds present, Soft to palpation, non-tender and no masses PALPATION: Yes Soft to palpation RECTAL EXAM: visual inspection normal, normal sphincter tone, No External hemorrhoid(s) present, No Internal hemorrhoid(s) present, No Rectal prolapse and fecal impaction OTHER: Was able to disimpact moderate amount of soft brown stool. No evidence of bright red blood, melena etc. : COMMON NORMALS: Yes no CVA tenderness BLADDER/KIDNEY EXAM: Yes no CVA tenderness Back/Pelvis: COMMON NORMALS: no CVA tenderness, thoracic and lumbar spine normal to inspection, no thoracic nor lumbar tenderness and thoraco-lumbar ROM normal Extremity: COMMON NORMALS: normal to inspection, full ROM, no calf tenderness and no pedal edema Neuro: COMMON NORMALS: patient oriented x3, moves all extremities and no focal motor deficits Skin: COMMON NORMALS: no rashes or lesions noted and turgor normal GENERAL SKIN EXAM: no rashes or lesions noted and turgor normal Course Reevaluation(s): Reevaluation #1: Patient had a bowel movement after stimulation and partial disimpaction and she is ready to go home stating she feels much better. We discussed use of MiraLAX, fluid intake and keeping active and return precautions with both she and family. Time: 13:29 Vital Signs: Vital signs: Vital Signs Temperature 98.1 F 07/19/22 12:01 Pulse Rate 85 07/19/22 12:01 Respiratory Rate 16 07/19/22 12:01 Blood Pressure 127/76 07/19/22 12:01 Pulse Oximetry 99 07/19/22 12:01 MDM - GI Bleed Medical Decision Making This patient presented to the emergency department with recent bilateral mastectomy and on analgesics for pain control with decreased bowel movement frequency over the past week and findings and history suggestive of constipation. Rectal examination reveals significant amount of soft brown stool in the rectal vault partially removed and after that process she was spontaneously expelled considerable amount of stool and had subjective resolution of her symptoms. At no time did I see any blood in her stool, evidence of fissure or bleeding hemorrhoids etc. Think she probably had some transient mucosal bleeding due to her straining at stool. Stable at this time to be discharged home with close follow-up and on MiraLAX regimen. Medical Records I reviewed the patient's medical records. Discharge Plan Discharge Patient Disposition: Home Clinical Impression: Fecal impaction, Constipation due to pain medication therapy Condition: Stable Prescriptions: New polyethylene glycol 3350 [Miralax] 17 gram powder in packet 17 g PO DAILY Qty: 30 1RF No Action calcium carbonate [Calcium 600] 600 mg calcium (1,500 mg) tablet 600 mg PO DAILY cholecalciferol (vitamin D3) 125 mcg (5,000 unit) capsule 125 mcg PO DAILY omeprazole 20 mg capsule,delayed release(DR/EC) 20 mg PO DAILY Qty: 90 1RF anastrozole [Arimidex] 1 mg tablet 1 mg PO DAILY 60 Days Qty: 90 0RF hydrocodone-acetaminophen 7.5-325 mg tablet 1 tab PO BID 30 Days Qty: 60 0RF Hold Instructions: Resume on 07/22/22. Rx Instructions: Take 1/2 to 1 tab by mouth two times a day for pain. DOK 100 mg capsule 100 mg PO BID Qty: 20 0RF hydrocodone-acetaminophen 7.5-325 mg tablet 1 tab PO Q6H PRN (Reason: pain) Qty: 28 0RF Discharge Orders: Discharge ED (Routine); Ordered 07/19/22 Ordered By: Kadeem Walsh Referrals: Eleuterio Morgan DO [Primary Care Provider] - Discharge Diet: Usual diet Discharge Activity: Increase activity as tolerated Patient Instructions: Opioid Safety, Pain Management Activity Restrictions/Additional Instructions: Use the MiraLAX powder we have prescribed on a daily basis to prevent constipation. Drink at least 1 quart of fluid daily. Continue usual medication as prescribed. Should you develop abdominal pain, blood in stools, black tarry stools or other concerns return to this or the nearest emergency department. Coding Level of Care Code ED Central Office Operator Supervisor for Marty Fwrenaldo Exam Comprehensive
[2022-07-19 13:42] VITALS: RESP 14
== END 2022-07-19 13:41 | disposition home or self-care (01) ==
PROVIDERS: Emergency Provider Emergency Medicine; PCP Family Medicine
DX: K56.41 Fecal impaction (principal); Z79.891 Long term (current) use of opiate analgesic; Z90.13 Acquired absence of bilateral breasts and nipples
CPT/HCPCS: 99283

== ENCOUNTER → 2022-07-27 13:19 | Outpatient (BNVA) | payer MEDICARE, SELFPAY | PROVIDERS: PCP Family Medicine; Visit Provider Surgery | DX: Z98.890 Other specified postprocedural states (principal); Z90.13 Acquired absence of bilateral breasts and nipples | CPT/HCPCS: 99024 ==

== ENCOUNTER 2022-08-19 08:52 | Oncology outpatient (recurring) (ONCR) | payer MEDICARE, SELFPAY ==
[2022-08-19 09:52] LABS: Basophils # 0.1 10^3/uL (0.0-0.1); Eosinophils # 0.1 10^3/uL (0.0-0.8); Eosinophils % 1.5 %; Hematocrit 39.8 % (37.0-47.0); Hemoglobin 12.4 g/dL (11.5-15.3); Lymphocytes # 1.6 10^3/uL (0.8-4.8); Lymphocytes % 17.4 %; Mean Corpuscular HGB Conc 31.2 g/dL (30.0-36.0); Mean Corpuscular Hemoglobin 29.1 pg (28.0-34.0); Mean Corpuscular Volume 93.4 fl (81-99); Mean Platelet Volume 10.5 fL (7.4-10.4); Monocytes # 0.6 10^3/uL (0.2-0.9); Monocytes % 6.8 %; Neutrophils # 6.72 10^3/uL (1.8-7.7); Nucleated Red Blood Cells % 0 %; Platelet Count 332 10^3/cmm (130-400); Red Blood Count 4.26 10^6/uL (4.1-5.3); Red Cell Distribution Width 13.2 % (12.1-15.1); White Blood Count 9.2 10^3/uL (4.0-10.0)
[2022-08-19 10:05] LABS: Alanine Aminotransferase 9 U/L (0-33); Albumin Level 3.9 g/dL (3.5-5.2); Alkaline Phosphatase 79 U/L (35-105); Anion Gap 13.9 (5-19); Aspartate Amino Transferase 14 U/L (0-32); Blood Urea Nitrogen 16 mg/dL (8-23); Carbon Dioxide 26 mmol/L (22-29); Chloride 102 mmol/L (98-107); Globulin 2.7 g/dL (1.3-4.6); Glucose 131 mg/dL (65-115); Osmolality Calculated 289 mOsm/kg (285-295); Potassium 3.9 mmol/L (3.5-5.1); Sodium 138 mmol/L (136-145); Total Bilirubin 0.3 mg/dL (0.15-1.2); Total Protein 6.6 g/dL (6.6-8.7)
== END 2022-08-30 23:59 | disposition home or self-care (01) ==
PROVIDERS: PCP Family Medicine; Visit Provider Internal Medicine Hematology & Oncology
DX: C50.811 Malignant neoplasm of overlapping sites of right female breast (principal); C50.812 Malignant neoplasm of overlapping sites of left female breast; Z17.0 Estrogen receptor positive status [ER+]; C77.3 Secondary and unspecified malignant neoplasm of axilla and upper limb lymph nodes; Z79.811 Long term (current) use of aromatase inhibitors; Z90.13 Acquired absence of bilateral breasts and nipples; Z79.899 Other long term (current) drug therapy
CPT/HCPCS: 36415; 80053; 85025; 99215

== ENCOUNTER 2022-09-23 07:51 | Oncology outpatient (recurring) (ONCR) | payer MEDICARE, SELFPAY ==
[2022-09-23 08:37] LABS: Basophils # 0.1 10^3/uL (0.0-0.1); Basophils % 0.9 %; Eosinophils # 0.1 10^3/uL (0.0-0.8); Eosinophils % 1.1 %; Hematocrit 38.6 % (37.0-47.0); Hemoglobin 12.5 g/dL (11.5-15.3); Lymphocytes # 1.5 10^3/uL (0.8-4.8); Mean Corpuscular HGB Conc 32.4 g/dL (30.0-36.0); Mean Corpuscular Hemoglobin 29.6 pg (28.0-34.0); Mean Corpuscular Volume 91.3 fl (81-99); Mean Platelet Volume 10.2 fL (7.4-10.4); Monocytes # 0.8 10^3/uL (0.2-0.9); Monocytes % 10.2 %; Neutrophils # 5.59 10^3/uL (1.8-7.7); Neutrophils % 69.4 %; Nucleated Red Blood Cells % 0 %; Platelet Count 237 10^3/cmm (130-400); Red Blood Count 4.23 10^6/uL (4.1-5.3); Red Cell Distribution Width 13.2 % (12.1-15.1); White Blood Count 8.1 10^3/uL (4.0-10.0)
[2022-09-23 09:03] LABS: Albumin Level 3.4 g/dL (3.5-5.2); Alkaline Phosphatase 77 U/L (35-105); Blood Urea Nitrogen 22 mg/dL (8-23); Calcium 9.1 mg/dL (8.5-10.5); Carbon Dioxide 19 mmol/L (22-29); Chloride 107 mmol/L (98-107); Globulin 2.9 g/dL (1.3-4.6); Glucose 100 mg/dL (65-115); Osmolality Calculated 293 mOsm/kg (285-295); Sodium 140 mmol/L (136-145); Total Bilirubin 0.3 mg/dL (0.15-1.2); Total Protein 6.3 g/dL (6.6-8.7)
[2022-09-23 09:33] LABS: Alanine Aminotransferase 10 U/L (0-33); Aspartate Amino Transferase 17 U/L (0-32)
[2022-09-23 09:37] LABS: Slide Review Slide Review Perform
--- NOTE | 2022-09-23 12:14 | N.ONRAD NP_ITS ---
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 Chief Complaint / History of Present Illness: Ms Staton is an 86-year-old lady who noticed a small sore on the right lateral posterior breast last summer. It enlarged and subsequently developed drainage, and later a fungating mass broke through the skin. She also developed fullness in the right axilla during that time. She underwent mammography and breast ultrasound 03/29/2022. She had a dense mass in the right upper quadrant of the right breast measuring 3.7 x 2.5 cm. Another mass was noted along the posterior chest wall. She underwent a sonogram which showed bilateral breast masses and lymphadenopathy in the right axilla. On 04/27/2022 she underwent bilateral ultrasound guided breast biopsies. Invasive carcinoma was confirmed in both breasts and in the right axilla. The molecular profile is noted above under diagnosis. She saw Dr. Song and was started on Arimidex 1 mg daily on 05/04/2022. She underwent bilateral mastectomy 07/14/2022. The pathology of the left breast showed invasive carcinoma of no special type, grade 2, with a maximum tumor size of 3 cm. 2 foci of invasive cancer were noted. There was no DCIS. The posterior and inferior margin were positive for carcinoma. Lymphovascular invasion was identified. 4 sentinel nodes were obtained and 2 contained cancer. The largest metastasis measured 1.1 cm and had extracapsular extension of greater than 2 mm. Pathology of the right breast showed invasive carcinoma with mixed ductal, mucinous, and micropapillary features. The cancer was grade 2 and the greatest dimension was 3.7 cm. There were 2 foci of invasive carcinoma. DCIS was present. Both DCIS and invasive carcinoma extended to the deep posterior margin. Lymphovascular invasion was noted. 1 out of 2 regional nodes was involved. Current Medications: Anastrozole, calcium Carbonate Antacid, cholecalciferol, omeprazole. Allergies: Penicillin Medical History: No history of collagen vascular disease. No previous radiation therapy. Surgical History: Partial gastrectomy for ulcer disease many years ago. She had postoperative complications and was hospitalized over 30 days. She said that she did not see a doctor for about 50 years after that difficult hospitalization Family History: Social History: No alcohol or tobacco use. of over 40 years . She has a children and is accompanied by a daughter. Current Complaints / Review of Systems: . Appetite has been poor and she has early satiety. Milk-based products tend to bother her stomach. She has had significant weight loss. She had postoperative constipation. She is now on a stool softener as needed. 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 She has slight dyspnea with exertion. No cough, sputum production, or hemoptysis. No bone or joint pain. She has some numbness of the right chest wall where she underwent surgery. She has not had any arm or hand swelling. She is had deteriorating vision and an eye exam is pending. No neurologic symptoms such as fainting, blackouts, or unilateral weakness. Bladder function is normal with no hesitancy, difficulty emptying, dysuria, pyuria, or hematuria. Vital Signs: Performed on 09/23/2022 10:28 AM BMI - 17.36 kg/m2 (low), Height - 63 in, Weight - 98 lbs, Temperature - 98.5 f, Pulse - 75 /min, Respiration - 16 /min, O2 Sat - 98 %, Pain - 5, Fatigue - 0 and BP - 169/ 81 mm(hg)(high/). Physical Exam: Alert, oriented, no acute distress. She appears chronically ill. She walks with a cane due to a remote hip injury. She was told she needed surgery, but refused to consider it because of the difficult hospitalization she had at the time of her gastrectomy. No cervical, supraclavicular, or axillary lymphadenopathy. Lungs clear to percussion. No rales rhonchi or wheezes. Heart rhythm regular. No murmur gallop or rub. Abdomen no distention. No organomegaly or mass or tenderness. Musculoskeletal limp as noted above. She has no bone tenderness. No lymphedema of either arm Examination of the bilateral chest ledezma reveals well-healed mastectomy scars. There are no skin changes or palpable subcutaneous nodules. Performance Status: ECOG 1 Pathology: See diagnosis Lab: Oncotype Dx 24. No chemotherapy. Imaging: See HPI Impression: Ms. Staton has undergone bilateral mastectomies for locally advanced breast cancer. She has bilateral positive nodes, bilateral lymphovascular invasion, and bilateral positive margins. She is a candidate for postoperative radiation to both chest ledezma and bilateral regional nodes. I discussed the need for treatment. I reviewed the side effects and possible complications of treatment. I discussed the possibility of chest wall pain and advanced skin reaction. I discussed that she may need treatment for lymphedema. I reviewed the risk of pneumonitis and the possible need for steroids. Also discussed that the heart will get some radiation but that major cardiac injury is unlikely. In view of her age, I did not discuss second malignancy. Due to bilateral treatment I told her she may notice increased fatigue and decreased appetite. In view of her weight loss, poor appetite, early satiety, and poor tolerance of milk-based supplements, I suggested that she see the dietitian. She is in agreement. Plan: Return for simulation next week. Signed by: 09/23/2022 12:12:45 PM <<Signature on File>> Time spent with patient: CPT Code: CPT Code:
[2022-11-14 16:29] LABS: BRCA 1 & 2 Clinical Interpreta NEGATIVE; BRCA 1&2 Result NEGATIVE
== END 2022-09-27 23:59 | disposition home or self-care (01) ==
PROVIDERS: PCP Family Medicine; Visit Provider Internal Medicine Hematology & Oncology
DX: C50.811 Malignant neoplasm of overlapping sites of right female breast (principal); Z17.0 Estrogen receptor positive status [ER+]; C50.812 Malignant neoplasm of overlapping sites of left female breast; Z90.12 Acquired absence of left breast and nipple; K21.9 Gastro-esophageal reflux disease without esophagitis; C77.9 Secondary and unspecified malignant neoplasm of lymph node, unspecified
CPT/HCPCS: 80053; 81162; 85025; 99204; 99214

== ENCOUNTER 2022-09-29 08:40 | Oncology outpatient (recurring) (ONCR) | payer MEDICARE, SELFPAY ==
--- NOTE | 2022-09-29 11:26 | ONCRAD EPV_ITS ---
Radiation Oncology Follow-Up Note Patient Name: Chapis Staton Date of : 1935 Date of Service: 09/29/2022 Attending Physician: Eliel Hooker M.D. Chapis Staton returned to my office this morning to discuss treatment management of a recently diagnosed breast cancer. She was evaluated for a palpable right breast mass. A diagnostic mammogram (independently reviewed in [facility]) ordered on February revealed a spiculated mass in the upper-outer quadrant of the right breast measuring 3.7 cm x 2.5 cm and a partially obstructed from view left chest wall mass. Ultrasonography confirmed a lobulated mass at the 11 o'clock position, 1 cm from the nipple within the right breast measuring 3.5 cm x 2.2 cm x 3.1 cm with extension to the chest wall and a right axillary lymph node measuring 1.7 cm x 2.4 cm x 2.1 cm. Imaging of the left breast demonstrated an irregular mass at the 12 o'clock position, 1 cm from the nipple measuring 3 cm x 1.7 cm x 2.5 cm. Ultrasound-guided needle core biopsies obtained on April 27, 2022 diagnosed a grade 2 invasive ductal carcinoma within the right breast and lymph node specimens and a grade 2 invasive ductal carcinoma in the left breast. The breast cancer prognostic profile (right breast) reported estrogen receptor positivity (95%), progesterone receptor negativity (less than 1%), and HER2 negative (2+; HER2 ratio 1.1). The Ki???67 was 15%. The left breast tumor was ER positive (95%), KS positive (70%), and HER2 negative (2+; ratio 1.1). The Ki???67 15%. Neoadjuvant aromatase inhibitor was prescribed by Malou Song M.D. beginning May 04, 2022. A right modified radical mastectomy and left simple mastectomy with sentinel lymph node biopsy were Broderick Salgado M.D. on July 14, 2022. The pathology report confirmed a 3.7 cm grade 2 invasive ductal carcinoma in the right breast with multiple foci of invasive carcinoma. The deep surgical margin was positive for invasive carcinoma and DCIS. A total of 2 lymph nodes were harvested with a solitary metastasis noted. Within the left mastectomy specimen grade 2 invasive ductal carcinoma measuring 3 cm was reported with multiple foci of invasive carcinoma present. The posterior and inferior margins were positive for malignancy. A total of 4 lymph nodes were identified with 2 harboring metastatic disease with extracapsular extension present. The largest lymph node measured 1.1 cm. The Oncotype DX Breast Recurrence Score was 24 (19% risk of distant recurrence with AI or Tamoxifen). I discussed with Ms. Staton The [place] [employer] on Cancer Staging for breast cancer and specifically the patient's bilateral pathological stages yIIB (T2N1a) responding to her disease. I also reviewed the National Comprehensive Cancer Network Guidelines recommending adjuvant radiotherapy. This endorsement is in accordance to the classic studies by the [place] [employer] Group and the Early Breast Cancer Trialists??? Collaborative Group. She is aware that these studies demonstrated an overall survival improvement in patients treated with post-mastectomy radiotherapy. I would recommend a five week course of right chest wall and regional lymph node radiotherapy sequential to PMRT to the left chest wall and regional lymph nodes. A computed tomographic radiotherapy planning scan with contrast will be acquired in the treatment position to identify the clinical tumor volumes. The potential toxicities of post-mastectomy radiotherapy were reviewed. Signed by: Eliel Hooker 09/29/2022 11:24:32 AM
== END 2022-10-28 23:59 | disposition home or self-care (01) ==
PROVIDERS: PCP Family Medicine; Visit Provider Radiology Radiation Oncology
DX: C50.811 Malignant neoplasm of overlapping sites of right female breast (principal); C50.812 Malignant neoplasm of overlapping sites of left female breast; Z17.0 Estrogen receptor positive status [ER+]; C77.3 Secondary and unspecified malignant neoplasm of axilla and upper limb lymph nodes; Z79.811 Long term (current) use of aromatase inhibitors
CPT/HCPCS: 99205

== ENCOUNTER 2023-01-12 12:56 | Oncology outpatient (recurring) (ONCR) | payer MEDICARE, SELFPAY ==
[2023-01-12 13:21] VITALS: BP 126/75; PULSE 98; RESP 16; TEMP 37; O2SAT 99
[2023-01-12 13:31] LABS: Basophils # 0.1 10^3/uL (0.0-0.1); Basophils % 0.8 %; Eosinophils % 0.5 %; Hemoglobin 13.3 g/dL (11.5-15.3); Lymphocytes # 1.9 10^3/uL (0.8-4.8); Lymphocytes % 24.8 %; Mean Corpuscular HGB Conc 32.4 g/dL (30.0-36.0); Mean Corpuscular Volume 89.5 fl (81-99); Mean Platelet Volume 9.6 fL (7.4-10.4); Monocytes # 0.6 10^3/uL (0.2-0.9); Monocytes % 8.3 %; Neutrophils # 4.92 10^3/uL (1.8-7.7); Neutrophils % 65.5 %; Nucleated Red Blood Cells % 0 %; Platelet Count 310 10^3/cmm (130-400); Red Blood Count 4.58 10^6/uL (4.1-5.3); Red Cell Distribution Width 13.8 % (12.1-15.1); White Blood Count 7.5 10^3/uL (4.0-10.0)
[2023-01-12 13:55] LABS: Alanine Aminotransferase 10 U/L (0-33); Albumin Level 3.8 g/dL (3.5-5.2); Alkaline Phosphatase 77 U/L (35-105); Anion Gap 12.9 (5-19); Aspartate Amino Transferase 14 U/L (0-32); Blood Urea Nitrogen 15 mg/dL (8-23); Calcium 9.3 mg/dL (8.5-10.5); Carbon Dioxide 26 mmol/L (22-29); Chloride 102 mmol/L (98-107); Globulin 2.6 g/dL (1.3-4.6); Glucose 111 mg/dL (65-115); Osmolality Calculated 286 mOsm/kg (285-295); Potassium 3.9 mmol/L (3.5-5.1); Sodium 137 mmol/L (136-145); Total Bilirubin 0.4 mg/dL (0.15-1.2); Total Protein 6.4 g/dL (6.6-8.7)
== END 2023-01-27 23:59 | disposition home or self-care (01) ==
PROVIDERS: Internal Medicine Hematology & Oncology; PCP Family Medicine; Visit Provider Radiology Radiation Oncology
DX: C50.811 Malignant neoplasm of overlapping sites of right female breast (principal); C50.812 Malignant neoplasm of overlapping sites of left female breast; Z17.0 Estrogen receptor positive status [ER+]
CPT/HCPCS: 36415; 80053; 85025; 99214

== ENCOUNTER 2023-03-12 17:37 | Emergency (ER) | payer MEDICARE, SELFPAY ==
--- NOTE | 2023-03-12 17:51 | XRR_ITS ---
PROCEDURE INFORMATION: Exam: XR Chest Exam date and time: 03/12/2023 6:21 PM Age: 87 years old Clinical indication: Pain; Chest pressure; Additional info: Dyspnea/cough TECHNIQUE: Imaging protocol: Radiologic exam of the chest. Views: 1 view. COMPARISON: No relevant prior studies available. FINDINGS: Lungs: Emphysematous changes. Pleural spaces: Unremarkable. No pleural effusion. No pneumothorax. Heart/Mediastinum: Unremarkable. No cardiomegaly. Vasculature: Suspected calcified abdominal aortic aneurysm, consider correlation with ultrasound and/or CT. Bones/joints: Unremarkable. XR/XR chest 1V portable [id number] IMPRESSION: 1. Negative for infiltrate. 2. Emphysematous changes. 3. Suspected calcified abdominal aortic aneurysm, consider correlation with ultrasound and/or CT.
--- NOTE | 2023-03-12 17:51 | ECG_ITS ---
[facility] Test Date: 2023-03-12 Pat Name: Chapis Staton Department: Room: Gender: Female Phytopathologist: : 1935 Requested By: Paul Cruz Order Number: [id number] MD: Cristofer Cottrell M.D. Measurements Intervals [place] Rate: 78 P: 67 MI: 150 QRS: 29 QRSD: 81 T: 66 QT: 376 QTc: 429 Interpretive Statements SINUS RHYTHM WITH SINUS ARRHYTHMIA No previous ECG available for comparison Electronically Signed On 03-12-2023 18:26:04 CDT by Cristofer Cottrell M.D. [email or web address]
[2023-03-12 17:57] VITALS: BP 143/92; PULSE 91; RESP 19; O2SAT 100
--- NOTE | 2023-03-12 18:42 | ED_ITS ---
HPI - Nausea/Vomiting/Diarrhea General: Chief complaint: Nausea/Vomiting/Diarrhea Stated complaint: all over body pain Time Seen by Provider: 03/12/23 17:49 Source: patient Mode of arrival: ambulatory History of Present Illness: 87-year-old female presents emergency room complaining of epigastric discomfort nausea. She was diagnosed June 2022 with bilateral breast [facility] oncology and surgical notes reviewed. She has stage IIIa breast cancer with some extracapsular extension on some of the lymph nodes. She is on oral anastrozole currently. She was recommended to have radiation for the chest wall but she declined. Her biggest complaint today is pain in her upper right arm which is been present for some time and thought to be secondary to her mastectomy. She also has severe nausea when she eats almost anything she does not have any antiemetics currently she is lost a considerable a lot of weight per her and her family's report body mass index is down to 16.5. She denies hematochezia melena hematemesis or coffee-ground emesis she did previously have a gastric resection for an ulcer. She reported whenever she eats she gets significant abdominal discomfort. MD elicited complaint: nausea and vomiting Pertinent past history: abdominal surgery Onset (ago): month(s) Associated nausea: Yes Associated abdominal pain: Yes Location of pain: Epigastric Pain consistency: intermittent Quality: cramping Exacerbating factors: eating Associated symtoms: Reports fatigue, anorexia, malaise and nausea; Denies chest pain, dysuria or palpitations Review of Systems Const: Reports: body aches, change in appetite, fatigue and malaise; Denies: fever(s) or chills ENMT: Denies: throat pain, ear or mastoid pain, nasal discharge or nasal congestion Card: Denies: chest pain, palpitations, irregular heart rhythm, edema, dyspnea on exertion or orthopnea Resp: Denies: dyspnea, productive cough or non-productive cough GI: Reports: abdominal pain, nausea and GI cramping : Denies: flank pain, difficulty voiding, dysuria, urinary frequency or urinary urgency Skin/Breast: Denies: rash or pruritus PFS ED PFSH: Medical History 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, estrogen receptor positive Mass of right breast Surgical History History of partial gastrectomy Hx of bilateral mastectomy right modified radical mastectomy and left mastectomy with sentinel lymph node bx Hx of tonsillectomy Social History Smoking and tobacco status: never smoked Smoking risk assessment/counseling performed?: No Alcohol intake: never Desire information about alcohol rehabilitation?: No Counseling given: No Substance/Drug Use: never Desire information about substance/drug rehabilitation?: No Counseling given: No Female Reproductive History: Spontaneous abortions: No Physical Exam Const: GENERAL APPEARANCE: cooperative and comfortable ORIENTATION/CONSCIOUSNESS: Yes awake, Yes oriented to person, Yes oriented to place and Yes oriented to time HENMT: COMMON NORMALS: normocephalic, atraumatic and hearing grossly normal bilaterally HEAD & SCALP: normocephalic and atraumatic Resp: COMMON NORMALS: normal respiratory effort, No retractions, No use of accessory muscles and clear to auscultation bilaterally AUSCULTATION: clear to auscultation bilaterally Cardio: COMMON NORMALS: regular rate, regular rhythm and No murmurs present (Cardio) RATE: regular rate RHYTHM: regular rhythm GI: COMMON NORMALS: Soft to palpation and No hepatosplenomegaly present AUSCULTATION: Yes normoactive bowel sounds PALPATION: Yes Soft to palpation, No Tenderness to palpation present (GI), No Guarding due to palpation present (GI) and Yes No hepatosplenomegaly present Extremity: COMMON NORMALS: normal to inspection, capillary refill normal, no clubbing, cyanosis or edema, no calf tenderness and no pedal edema Neuro: SENSORIUM/ORIENTATION: Yes oriented to person, Yes oriented to place and Yes oriented to time Skin: COMMON NORMALS: no rashes or lesions noted GENERAL SKIN EXAM: no rashes or lesions noted Course Vital Signs: Vital signs: Vital Signs Pulse Rate 77 03/12/23 19:34 Respiratory Rate 18 03/12/23 19:34 Blood Pressure 155/68 03/12/23 19:34 Pulse Oximetry 100 03/12/23 19:34 Oxygen Delivery Me thod Room Air 03/12/23 19:34 MDM - Nausea/Vomiting/Diarrhea Medical Decision Making Labs reviewed. Patient is somewhat improved after fluids. Will increase omeprazole to twice daily. Promethazine to use as needed. Family states he did not have any pain medicine for she is given 20 tablets of hydrocodone 11/30/2024. Follow-up with oncology. Encourage meal supplements to avoid early satiety Medical Records I reviewed the patient's medical records. Lab Data I reviewed the patient's lab results. 03/12/23 19:18 03/12/23 19:18 Radiology Impressions Chest X-Ray 03/12/23 17:51 IMPRESSION: 1. Negative for infiltrate. 2. Emphysematous changes. 3. Suspected calcified abdominal aortic aneurysm, consider correlation with ultrasound and/or CT. Laboratory Results WBC 7.9 10^3/uL (4.0-10.0) 03/12/23 19:18 RBC 4.91 10^6/uL (4.1-5.3) 03/12/23 19:18 Hgb 14.4 g/dL (11.5-15.3) 03/12/23 19:18 Hct 44.7 % (37.0-47.0) 03/12/23 19:18 MCV 91.0 fl (81-99) 03/12/23 19:18 MCH 29.3 pg (28.0-34.0) 03/12/23 19:18 MCHC 32.2 g/dL (30.0-36.0) 03/12/23 19:18 RDW 13.5 % (12.1-15.1) 03/12/23 19:18 Plt Count 288 10^3/cmm (130-400) 03/12/23 19:18 MPV 10.4 fL (7.4-10.4) 03/12/23 19:18 Neut % (Auto) 65.9 % 03/12/23 19:18 Lymph % (Auto) 23.3 % 03/12/23 19:18 Briscoe % (Auto) 9.1 % 03/12/23 19:18 Eos % (Auto) 0.8 % 03/12/23 19:18 Baso % (Auto) 0.6 % 03/12/23 19:18 Neut # (Auto) 5.21 10^3/uL (1.8-7.7) 03/12/23 19:18 Lymph # (Auto) 1.8 10^3/uL (0.8-4.8) 03/12/23 19:18 Briscoe # (Auto) 0.7 10^3/uL (0.2-0.9) 03/12/23 19:18 Eos # (Auto) 0.1 10^3/uL (0.0-0.8) 03/12/23 19:18 Baso # (Auto) 0.1 10^3/uL (0.0-0.1) 03/12/23 19:18 Nucleated RBC % (auto) 0 % 03/12/23 19:18 Nucleated RBCs # 0.0 /100WBC 03/12/23 19:18 Sodium 141 mmol/L (136-145) 03/12/23 19:18 Potassium 4.9 mmol/L (3.5-5.1) 03/12/23 19:18 Chloride 104 mmol/L (98-107) 03/12/23 19:18 Carbon Dioxide 22 mmol/L (22-29) 03/12/23 19:18 Anion Gap 19.9 (5-19) H 03/12/23 19:18 BUN 18 mg/dL (8-23) 03/12/23 19:18 Creatinine 0.9 mg/dL (0.5-0.9) 03/12/23 19:18 GFR Calculation Not Reportable 03/12/23 19:18 Glucose 105 mg/dL (65-115) 03/12/23 19:18 Calculated Osmolality 294 mOsm/kg (285-295) 03/12/23 19:18 Calcium 9.6 mg/dL (8.5-10.5) 03/12/23 19:18 Total Bilirubin 0.5 mg/dL (0.15-1.2) 03/12/23 19:18 AST 19 U/L (0-32) 03/12/23 19:18 ALT 14 U/L (0-33) 03/12/23 19:18 Alkaline Phosphatase 84 U/L (35-105) 03/12/23 19:18 Total Protein 6.2 g/dL (6.6-8.7) L 03/12/23 19:18 Albumin 3.9 g/dL (3.5-5.2) 03/12/23 19:18 Globulin 2.3 g/dL (1.3-4.6) 03/12/23 19:18 Lipase 17 U/L (13-60) 03/12/23 19:18 Discharge Plan Discharge Patient Disposition: Home Clinical Impression: Nausea & vomiting, 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, estrogen receptor positive, Hx of bilateral mastectomy Condition: Stable Prescriptions: New promethazine 25 mg tablet 25 mg PO Q6H PRN (Reason: nausea and vomiting) Qty: 20 0RF Percocet 5-325 mg tablet 1 tab PO Q6H PRN (Reason: pain) Qty: 20 0RF Changed omeprazole 20 mg capsule,delayed release(DR/EC) 20 mg PO BID Qty: 90 1RF No Action calcium carbonate [Calcium 600] 600 mg calcium (1,500 mg) tablet 600 mg PO DAILY cholecalciferol (vitamin D3) 125 mcg (5,000 unit) capsule 125 mcg PO DAILY bisacodyl [Dulcolax (bisacodyl)] 5 mg tablet,delayed release (DR/EC) 5 mg PO DAILY PRN anastrozole [Arimidex] 1 mg tablet 1 mg PO DAILY 90 Days Qty: 90 0RF oxycodone-acetaminophen 5-325 mg tablet 1 tab PO .COMPLEX PRN (Reason: pain) 30 Days Qty: 60 0RF Rx Instructions: 1 tab orally every 4 to 6 hours PRN; Discharge Orders: Discharge ED (Routine); Ordered 03/12/23 Ordered By: Paul Garcia Referrals: Eleuterio Morgan DO [Primary Care Provider] - Patient Instructions: Opioid Safety, Pain Management Coding Level of Care Code ED [employer] Operator for Marty Kaye
[2023-03-12] MEDS: sodium chloride 0.9% 1,000 ML 999 ML IV (19:30)
[2023-03-12] MEDS: ondansetron 2 mg/ML SDV 2 mL 4 MG IVP (19:31)
[2023-03-12 19:33] LABS: Basophils # 0.1 10^3/uL (0.0-0.1); Basophils % 0.6 %; Eosinophils # 0.1 10^3/uL (0.0-0.8); Eosinophils % 0.8 %; Hematocrit 44.7 % (37.0-47.0); Hemoglobin 14.4 g/dL (11.5-15.3); Lymphocytes # 1.8 10^3/uL (0.8-4.8); Lymphocytes % 23.3 %; Mean Corpuscular HGB Conc 32.2 g/dL (30.0-36.0); Mean Corpuscular Hemoglobin 29.3 pg (28.0-34.0); Mean Platelet Volume 10.4 fL (7.4-10.4); Monocytes # 0.7 10^3/uL (0.2-0.9); Monocytes % 9.1 %; Neutrophils # 5.21 10^3/uL (1.8-7.7); Neutrophils % 65.9 %; Nucleated Red Blood Cells % 0 %; Platelet Count 288 10^3/cmm (130-400); Red Blood Count 4.91 10^6/uL (4.1-5.3); Red Cell Distribution Width 13.5 % (12.1-15.1); White Blood Count 7.9 10^3/uL (4.0-10.0)
[2023-03-12] MEDS: morphine 4 mg/mL SDV 1 mL 2 MG IVP (19:33)
[2023-03-12 19:34] VITALS: BP 155/68; PULSE 77; RESP 18; O2SAT 100
[2023-03-12 19:52] LABS: Alanine Aminotransferase 14 U/L (0-33); Albumin Level 3.9 g/dL (3.5-5.2); Alkaline Phosphatase 84 U/L (35-105); Blood Urea Nitrogen 18 mg/dL (8-23); Calcium 9.6 mg/dL (8.5-10.5); Carbon Dioxide 22 mmol/L (22-29); Chloride 104 mmol/L (98-107); Globulin 2.3 g/dL (1.3-4.6); Glucose 105 mg/dL (65-115); Lipase 17 U/L (13-60); Osmolality Calculated 294 mOsm/kg (285-295); Sodium 141 mmol/L (136-145); Total Bilirubin 0.5 mg/dL (0.15-1.2); Total Protein 6.2 g/dL (6.6-8.7)
[2023-03-12 19:55] LABS: Anion Gap 19.9 (5-19); Aspartate Amino Transferase 19 U/L (0-32); Potassium 4.9 mmol/L (3.5-5.1)
== END 2023-03-12 20:30 | disposition home or self-care (01) ==
PROVIDERS: Emergency Provider Family Medicine; PCP Family Medicine
DX: R11.2 Nausea with vomiting, unspecified (principal); C50.912 Malignant neoplasm of unspecified site of left female breast; C50.911 Malignant neoplasm of unspecified site of right female breast; Z17.0 Estrogen receptor positive status [ER+]; Z90.13 Acquired absence of bilateral breasts and nipples
CPT/HCPCS: 71045; 80053; 83690; 85025; 93005; 96361; 96374; 96375; 99285; J2270; J2405; J7030

== ENCOUNTER 2023-03-17 12:25 | Outpatient (CLI) | payer MEDICARE, MEDICAID, SELFPAY ==
--- NOTE | 2023-03-17 13:00 | MR_ITS ---
WS: [id number] MRI HEAD WITH CONTRAST TECHNIQUE: Sagittal T1, T2 axial, T2 axial FLAIR, axial susceptibility weighted imaging, axial diffus ion weighted images, and coronal T2 images were obtained. Pre and post-T1 axial and post T1 coronal i mages. ADC and FSPGR images. CLINICAL INFORMATION: local recurrence COMPARISON: None. FINDINGS: No evidence of restricted diffusion to suggest acute ischemia. Ventricular system and basilar cistern s are patent. Advanced small vessel changes. Moderate parenchymal volume loss. Normal posterior fossa . Normal vascular flow voids at the skull base. No extra-axial fluid collections. No evidence of mass or mass effect. Paranasal sinuses and mastoid air cells are well aerated. Normal parapharyngeal fat. Prominent perivascular spaces in the basal ganglia. Small vessel changes in the joana. Scalp nodule in the left frontal scalp likely sebaceous cyst measuring 15 mm. Tiny punctate focus of hemosiderin in the left posterior frontal lobe. Tiny chronic lacunar infarct r ight midbrain. Tiny chronic lacunar infarct left thalamus. Normal optic chiasm and pituitary infundibulum. Normal cavernous sinuses and Meckel's cave. No evidence of enhancing intracranial metastatic disease. Normal visualized dural venous sinuses. IMPRESSION: 1. No evidence of enhancing intracranial metastatic disease. 2. Advanced small vessel changes with moderate parenchymal volume loss. 3. No other acute findings.
[2023-03-17] MEDS: gadobenate dimeglumine 20 mL vial IV (13:15)
== END 2023-03-17 12:26 | disposition home or self-care (01) ==
PROVIDERS: PCP Family Medicine; Visit Provider Internal Medicine Medical Oncology
DX: C50.911 Malignant neoplasm of unspecified site of right female breast (principal); C50.912 Malignant neoplasm of unspecified site of left female breast; Z17.0 Estrogen receptor positive status [ER+]
CPT/HCPCS: 70553; A9577

== ENCOUNTER 2023-03-18 11:41 | Outpatient (CLI) | payer MEDICARE, SELFPAY ==
--- NOTE | 2023-03-18 12:30 | PETR_ITS ---
PROCEDURE INFORMATION: Exam: PET/CT Skull Base to Mid-thigh Exam date and time: 03/18/2023 1:10 PM Age: 87 years old Clinical indication: Condition or disease; Primary cancer: Breast; Follow-up oncological assessment; Additional info: Restaging; Local recurrence, please move this patient up if there are any cancellations LABS AND CLINICAL REPORTS: Glucose: 127 mg/dl Treatment strategy for malignancy (PET staging): Restaging (PS) TECHNIQUE: Imaging protocol: Following at least four-hour fasting and following the injection of radiopharmaceutical, low dose CT images were obtained. Then, PET images were obtained. Attenuation corrected images were constructed using the CT scan. Fused images of PET and CT were reviewed. The standardized uptake values (SUV) reported below are maximum values within a region of interest, expressed in gm/ml. Exam includes orbital meatal line to mid-thigh. Radiopharmaceutical: 12.55 mCi F-18 FDG (Fluorodeoxyglucose), IV. Time of imaging post radiopharmaceutical administration: 1 hour Injection site: site COMPARISON: CR (CHEST, ) 03/12/2023 6:21 PM FINDINGS: Brain: Visualized brain has normal physiologic uptake. Pharynx: No abnormal uptake. Larynx: No abnormal uptake. Lungs, pleura and trachea: Minimal [id number]-left lower lobe subsegmental atelectasis. Heart: Normal physiologic uptake. Coronary arteries: Moderate coronary artery atherosclerosis. Mediastinal space: Mild uptake is present in the esophagus with SUV maximum of 3.4. Small hiatal hernia also present. Liver: No abnormal uptake. Gallbladder and bile ducts: Gallstones. Pancreas: No abnormal uptake. Spleen: No abnormal uptake. Adrenal glands: No abnormal uptake. Kidneys and ureters: Left upper pole peripelvic simple renal cyst measures 3.5 cm. Stomach and bowel: Stool throughout the colon suggests constipation. No bowel obstruction. Vasculature: Atherosclerotic changes of the aorta. No aneurysmal dilatation is visible. Lymph nodes: Bilateral axillary lymph node dissection changes. Bones/joints: Mild left convex scoliosis of the lumbar spine. No suspicious bone lesion. Soft tissues: Bilateral mastectomy changes. [id number] IMPRESSION: 1. Status post bilateral axillary lymph node dissection and bilateral mastectomy postoperative changes. No evidence of recurrent or metastatic disease. 2. Mild esophageal uptake suggesting esophagitis.
== END 2023-03-18 11:42 | disposition home or self-care (01) ==
LOC: RAD 03-20 06:19
PROVIDERS: PCP Family Medicine; Visit Provider Internal Medicine Medical Oncology
DX: C50.911 Malignant neoplasm of unspecified site of right female breast (principal); C50.912 Malignant neoplasm of unspecified site of left female breast; Z17.0 Estrogen receptor positive status [ER+]; Z90.13 Acquired absence of bilateral breasts and nipples; Z90.89 Acquired absence of other organs
CPT/HCPCS: 78815; A9552

== ENCOUNTER 2023-03-20 16:03 | Emergency (ER) | payer MEDICARE, SELFPAY ==
[2023-03-20 16:13] VITALS: BMI 16.1
--- NOTE | 2023-03-20 16:14 | XRR_ITS ---
PROCEDURE INFORMATION: Exam: XR Abdomen Exam date and time: 03/20/2023 4:20 PM Age: 87 years old Clinical indication: Constipation; Patient HX: HX of breast cancer TECHNIQUE: Imaging protocol: Radiologic exam of the abdomen. Views: Frontal supine view of the abdomen. 1 View. COMPARISON: [id number] 03/18/2023 1:10 PM FINDINGS: Lungs: Visualized lung bases are clear. Gastrointestinal tract: There is a moderate amount of stool throughout the large bowel likely reflecting some degree of constipation. Bones/joints: Unremarkable. XR/XR KUB portable [id number] IMPRESSION: Probable constipation.
[2023-03-20 16:15] VITALS: BP 150/73; PULSE 82; RESP 16; TEMP 37.2; O2SAT 98
--- NOTE | 2023-03-20 16:22 | W.ED.ABDPA2 ---
Documented by User: Paul Garcia DO 03/21/23 05:58 HPI - Abdominal Pain General: Chief Complaint: Abdominal Pain Stated Complaint: constipation 4 days Time Seen by Provider: 03/20/23 16:13 Source: patient Mode of arrival: ambulatory History of Present Illness: 87-year-old female presents to the emergency room with complaint of abdominal pain. Slight abdominal pain with constipation. Constipation been a chronic issue she is on MiraLAX and bisacodyl for preventative she takes oxycodone for pain which seems to be causing a problem. No bowel movement for the last 4 days no vomiting and no hematochezia melena hematemesis. No previous colonoscopy. MD elicited complaint: abdominal pain Pertinent past history: none Onset (ago): day(s) Pain Consistency: intermittent Location: Diffuse Exacerbating factors: nothing Relieving factors: nothing Associated Symptoms: Reports bloating, change in bowel habits, constipation and GI cramping; Denies anorexia, belching, change in stool character, chills, coffee ground emesis, diarrhea, dyspepsia, dysuria, fever(s), heartburn, hematochezia, hematemesis, fecal incontinence, loose stools, melena, nausea, poor appetite, syncope and vomiting Review of Systems Const: Denies: fever(s) or chills ENMT: Denies: throat pain, ear or mastoid pain, nasal discharge or nasal congestion Card: Denies: chest pain or syncope Resp: Denies: dyspnea, productive cough or non-productive cough GI: Reports: abdominal pain, constipation, bloating, GI cramping and change in bowel habits; Denies: nausea, vomiting, hematemesis, coffee ground emesis, heartburn, diarrhea, belching, fecal incontinence, change in stool character, hematochezia or melena : Denies: dysuria, urinary frequency or urinary urgency Skin/Breast: Denies: rash or pruritus PFSH ED PFSH: Medical History 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, estrogen receptor positive Mass of right breast Surgical History History of partial gastrectomy Hx of bilateral mastectomy right modified radical mastectomy and left mastectomy with sentinel lymph node bx Hx of tonsillectomy Social History Smoking and tobacco status: never smoked Smoking risk assessment/counseling performed?: No Alcohol intake: never Desire information about alcohol rehabilitation?: No Counseling given: No Substance/Drug Use: never Desire information about substance/drug rehabilitation?: No Counseling given: No Female Reproductive History: Spontaneous abortions: No Physical Exam Const: GENERAL APPEARANCE: cooperative ORIENTATION/CONSCIOUSNESS: Yes awake, Yes oriented to person, Yes oriented to place and Yes oriented to time HENMT: COMMON NORMALS: normocephalic, atraumatic and hearing grossly normal bilaterally HEAD & SCALP: normocephalic and atraumatic Resp: COMMON NORMALS: normal respiratory effort, No retractions, No use of accessory muscles and clear to auscultation bilaterally AUSCULTATION: clear to auscultation bilaterally Cardio: COMMON NORMALS: regular rate, regular rhythm and No murmurs present (Cardio) RATE: regular rate RHYTHM: regular rhythm GI: COMMON NORMALS: Soft to palpation and No hepatosplenomegaly present AUSCULTATION: Yes normoactive bowel sounds PALPATION: Yes Soft to palpation, No Tenderness to palpation present (GI), No Guarding due to palpation present (GI) and Yes No hepatosplenomegaly present Extremity: COMMON NORMALS: normal to inspection, capillary refill normal, no clubbing, cyanosis or edema, no calf tenderness and no pedal edema Neuro: SENSORIUM/ORIENTATION: Yes oriented to person, Yes oriented to place and Yes oriented to time Skin: COMMON NORMALS: no rashes or lesions noted GENERAL SKIN EXAM: no rashes or lesions noted Course Vital Signs: Vital signs: Vital Signs Temperature 98.9 F 03/20/23 16:15 Pulse Rate 78 03/20/23 18:27 Respiratory Rate 18 03/20/23 18:27 Blood Pressure 126/72 03/20/23 18:27 Pulse Oximetry 97 03/20/23 18:27 Oxygen Delivery Me thod Room Air 03/20/23 18:27 MDM - Abdominal Pain Medical Decision Making Care signed out to Dr. vazquez at change of shift. See final notes for diagnosis and disposition. Patient presents here with constipation patient was disimpacted she feels much improved did remove a significant amount of stool from the rectal vault she is stable for discharge at this time return if worsening. Lab Data 03/20/23 16:54 03/20/23 16:54 Labs/Radiology: Radiology Impressions KUB X-Ray 03/20/23 16:14 IMPRESSION: Probable constipation. Laboratory Results WBC 13.0 10^3/uL (4.0-10.0) H 03/20/23 16:54 RBC 4.59 10^6/uL (4.1-5.3) 03/20/23 16:54 Hgb 13.3 g/dL (11.5-15.3) 03/20/23 16:54 Hct 40.6 % (37.0-47.0) 03/20/23 16:54 MCV 88.5 fl (81-99) 03/20/23 16:54 MCH 29.0 pg (28.0-34.0) 03/20/23 16:54 MCHC 32.8 g/dL (30.0-36.0) 03/20/23 16:54 RDW 13.3 % (12.1-15.1) 03/20/23 16:54 Plt Count 257 10^3/cmm (130-400) 03/20/23 16:54 MPV 10.3 fL (7.4-10.4) 03/20/23 16:54 Neut % (Auto) 69.3 % 03/20/23 16:54 Lymph % (Auto) 19.5 % 03/20/23 16:54 [place] % (Auto) 10.6 % 03/20/23 16:54 Eos % (Auto) 0.1 % 03/20/23 16:54 Baso % (Auto) 0.1 % 03/20/23 16:54 Neut # (Auto) 9.01 10^3/uL (1.8-7.7) H 03/20/23 16:54 Lymph # (Auto) 2.5 10^3/uL (0.8-4.8) 03/20/23 16:54 [place] # (Auto) 1.4 10^3/uL (0.2-0.9) H 03/20/23 16:54 Eos # (Auto) 0.0 10^3/uL (0.0-0.8) 03/20/23 16:54 Baso # (Auto) 0.0 10^3/uL (0.0-0.1) 03/20/23 16:54 Nucleated RBC % (auto) 0 % 03/20/23 16:54 Nucleated RBCs # 0.0 /100WBC 03/20/23 16:54 Sodium 139 mmol/L (136-145) 03/20/23 16:54 Potassium 4.1 mmol/L (3.5-5.1) 03/20/23 16:54 Chloride 103 mmol/L (98-107) 03/20/23 16:54 Carbon Dioxide 23 mmol/L (22-29) 03/20/23 16:54 Anion Gap 17.1 (5-19) 03/20/23 16:54 BUN 26 mg/dL (8-23) H 03/20/23 16:54 Creatinine 0.7 mg/dL (0.5-0.9) 03/20/23 16:54 GFR Calculation Not Reportable 03/20/23 16:54 Glucose 96 mg/dL (65-115) 03/20/23 16:54 Calculated Osmolality 293 mOsm/kg (285-295) 03/20/23 16:54 Calcium 9.1 mg/dL (8.5-10.5) 03/20/23 16:54 Total Bilirubin 0.5 mg/dL (0.15-1.2) 03/20/23 16:54 AST 23 U/L (0-32) 03/20/23 16:54 ALT 29 U/L (0-33) 03/20/23 16:54 Alkaline Phosphatase 83 U/L (35-105) 03/20/23 16:54 Total Protein 6.2 g/dL (6.6-8.7) L 03/20/23 16:54 Albumin 4.0 g/dL (3.5-5.2) 03/20/23 16:54 Globulin 2.2 g/dL (1.3-4.6) 03/20/23 16:54 Discharge Plan Discharge Patient Disposition: Home Clinical Impression: Constipation Condition: Stable Prescriptions: No Action calcium carbonate [Calcium 600] 600 mg calcium (1,500 mg) tablet 600 mg PO DAILY cholecalciferol (vitamin D3) 125 mcg (5,000 unit) capsule 125 mcg PO DAILY bisacodyl [Dulcolax (bisacodyl)] 5 mg tablet,delayed release (DR/EC) 5 mg PO DAILY PRN ondansetron 4 mg tablet,disintegrating 4 mg PO Q8H Qty: 30 2RF gabapentin 100 mg capsule 100 mg PO TID Qty: 90 1RF Rx Instructions: 1 cap at bedtime for 7 days then add 1 cap in AM for 7 days, then 1 cap three times daily dexamethasone 4 mg tablet 4 mg PO BID Qty: 30 0RF anastrozole [Arimidex] 1 mg tablet 1 mg PO DAILY 90 Days Qty: 90 0RF oxycodone-acetaminophen 5-325 mg tablet 1 tab PO .COMPLEX PRN (Reason: pain) 30 Days Qty: 60 0RF Rx Instructions: 1 tab orally every 4 to 6 hours PRN; promethazine 25 mg tablet 25 mg PO Q6H PRN (Reason: nausea and vomiting) Qty: 20 0RF omeprazole 20 mg capsule,delayed release(DR/EC) 20 mg PO BID Qty: 90 1RF Percocet 5-325 mg tablet 1 tab PO Q6H PRN (Reason: pain) Qty: 20 0RF Discharge Orders: Discharge ED (Routine); Ordered 03/20/23 Ordered By: Cleo Stephens Referrals: Eleuterio Morgan DO [Primary Care Provider] - Discharge Diet: Advance as tolerated Discharge Activity: Resume usual activity Patient Instructions: Constipation (ED) Coding Level of Care Code 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: No Alcohol intake: never Desire information about alcohol rehabilitation?: No Counseling given: No Substance/Drug Use: never Desire information about substance/drug rehabilitation?: No Counseling given: No Procedures Rectal Disimpaction Time out performed rectal disimpaction: Yes Indication: fecal impaction Procedural Sedation: No Sedation/Analgesia: benzodiazepines Technique: manual disimpaction with gloved finger Result: significant stool output Patient Tolerated Procedure: well Complications: none Course Vital Signs: Vital signs: Vital Signs Temperature 98.9 F 03/20/23 16:15 Pulse Rate 78 03/20/23 18:27 Respiratory Rate 18 03/20/23 18:27 Blood Pressure 126/72 03/20/23 18:27 Pulse Oximetry 97 03/20/23 18:27 Oxygen Delivery Me thod Room Air 03/20/23 18:27 MDM - Abdominal Pain Medical Decision Making Patient presents here with constipation patient was disimpacted she feels much improved did remove a significant amount of stool from the rectal vault she is stable for discharge at this time return if worsening. Lab Data 03/20/23 16:54 03/20/23 16:54 Labs/Radiology: Radiology Impressions KUB X-Ray 03/20/23 16:14 IMPRESSION: Probable constipation. Laboratory Results WBC 13.0 10^3/uL (4.0-10.0) H 03/20/23 16:54 RBC 4.59 10^6/uL (4.1-5.3) 03/20/23 16:54 Hgb 13.3 g/dL (11.5-15.3) 03/20/23 16:54 Hct 40.6 % (37.0-47.0) 03/20/23 16:54 MCV 88.5 fl (81-99) 03/20/23 16:54 MCH 29.0 pg (28.0-34.0) 03/20/23 16:54 MCHC 32.8 g/dL (30.0-36.0) 03/20/23 16:54 RDW 13.3 % (12.1-15.1) 03/20/23 16:54 Plt Count 257 10^3/cmm (130-400) 03/20/23 16:54 MPV 10.3 fL (7.4-10.4) 03/20/23 16:54 Neut % (Auto) 69.3 % 03/20/23 16:54 Lymph % (Auto) 19.5 % 03/20/23 16:54 [place] % (Auto) 10.6 % 03/20/23 16:54 Eos % (Auto) 0.1 % 03/20/23 16:54 Baso % (Auto) 0.1 % 03/20/23 16:54 Neut # (Auto) 9.01 10^3/uL (1.8-7.7) H 03/20/23 16:54 Lymph # (Auto) 2.5 10^3/uL (0.8-4.8) 03/20/23 16:54 [place] # (Auto) 1.4 10^3/uL (0.2-0.9) H 03/20/23 16:54 Eos # (Auto) 0.0 10^3/uL (0.0-0.8) 03/20/23 16:54 Baso # (Auto) 0.0 10^3/uL (0.0-0.1) 03/20/23 16:54 Nucleated RBC % (auto) 0 % 03/20/23 16:54 Nucleated RBCs # 0.0 /100WBC 03/20/23 16:54 Sodium 139 mmol/L (136-145) 03/20/23 16:54 Potassium 4.1 mmol/L (3.5-5.1) 03/20/23 16:54 Chloride 103 mmol/L (98-107) 03/20/23 16:54 Carbon Dioxide 23 mmol/L (22-29) 03/20/23 16:54 Anion Gap 17.1 (5-19) 03/20/23 16:54 BUN 26 mg/dL (8-23) H 03/20/23 16:54 Creatinine 0.7 mg/dL (0.5-0.9) 03/20/23 16:54 GFR Calculation Not Reportable 03/20/23 16:54 Glucose 96 mg/dL (65-115) 03/20/23 16:54 Calculated Osmolality 293 mOsm/kg (285-295) 03/20/23 16:54 Calcium 9.1 mg/dL (8.5-10.5) 03/20/23 16:54 Total Bilirubin 0.5 mg/dL (0.15-1.2) 03/20/23 16:54 AST 23 U/L (0-32) 03/20/23 16:54 ALT 29 U/L (0-33) 03/20/23 16:54 Alkaline Phosphatase 83 U/L (35-105) 03/20/23 16:54 Total Protein 6.2 g/dL (6.6-8.7) L 03/20/23 16:54 Albumin 4.0 g/dL (3.5-5.2) 03/20/23 16:54 Globulin 2.2 g/dL (1.3-4.6) 03/20/23 16:54 Discharge Plan Discharge Patient Disposition: Home Clinical Impression: Constipation Condition: Stable Prescriptions: No Action calcium carbonate [Calcium 600] 600 mg calcium (1,500 mg) tablet 600 mg PO DAILY cholecalciferol (vitamin D3) 125 mcg (5,000 unit) capsule 125 mcg PO DAILY bisacodyl [Dulcolax (bisacodyl)] 5 mg tablet,delayed release (DR/EC) 5 mg PO DAILY PRN ondansetron 4 mg tablet,disintegrating 4 mg PO Q8H Qty: 30 2RF gabapentin 100 mg capsule 100 mg PO TID Qty: 90 1RF Rx Instructions: 1 cap at bedtime for 7 days then add 1 cap in AM for 7 days, then 1 cap three times daily dexamethasone 4 mg tablet 4 mg PO BID Qty: 30 0RF anastrozole [Arimidex] 1 mg tablet 1 mg PO DAILY 90 Days Qty: 90 0RF oxycodone-acetaminophen 5-325 mg tablet 1 tab PO .COMPLEX PRN (Reason: pain) 30 Days Qty: 60 0RF Rx Instructions: 1 tab orally every 4 to 6 hours PRN; promethazine 25 mg tablet 25 mg PO Q6H PRN (Reason: nausea and vomiting) Qty: 20 0RF omeprazole 20 mg capsule,delayed release(DR/EC) 20 mg PO BID Qty: 90 1RF Percocet 5-325 mg tablet 1 tab PO Q6H PRN (Reason: pain) Qty: 20 0RF Discharge Orders: Discharge ED (Routine); Ordered 03/20/23 Ordered By: Cleo Stephens Referrals: Eleuterio Morgan, [Primary Care Provider] - Discharge Diet: Advance as tolerated Discharge Activity: Resume usual activity Patient Instructions: Constipation (ED) Coding Level of Care Code 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
[2023-03-20 16:58] LABS: Basophils % 0.1 %; Eosinophils % 0.1 %; Hematocrit 40.6 % (37.0-47.0); Hemoglobin 13.3 g/dL (11.5-15.3); Lymphocytes # 2.5 10^3/uL (0.8-4.8); Lymphocytes % 19.5 %; Mean Corpuscular HGB Conc 32.8 g/dL (30.0-36.0); Mean Corpuscular Volume 88.5 fl (81-99); Mean Platelet Volume 10.3 fL (7.4-10.4); Monocytes # 1.4 10^3/uL (0.2-0.9); Monocytes % 10.6 %; Neutrophils # 9.01 10^3/uL (1.8-7.7); Neutrophils % 69.3 %; Nucleated Red Blood Cells % 0 %; Platelet Count 257 10^3/cmm (130-400); Red Blood Count 4.59 10^6/uL (4.1-5.3); Red Cell Distribution Width 13.3 % (12.1-15.1)
[2023-03-20 17:01] VITALS: BP 151/72; PULSE 66; RESP 18; O2SAT 99
[2023-03-20 17:21] LABS: Alanine Aminotransferase 29 U/L (0-33); Alkaline Phosphatase 83 U/L (35-105); Aspartate Amino Transferase 23 U/L (0-32); Blood Urea Nitrogen 26 mg/dL (8-23); Calcium 9.1 mg/dL (8.5-10.5); Carbon Dioxide 23 mmol/L (22-29); Chloride 103 mmol/L (98-107); Globulin 2.2 g/dL (1.3-4.6); Glucose 96 mg/dL (65-115); Osmolality Calculated 293 mOsm/kg (285-295); Sodium 139 mmol/L (136-145); Total Bilirubin 0.5 mg/dL (0.15-1.2); Total Protein 6.2 g/dL (6.6-8.7)
[2023-03-20 17:25] LABS: Anion Gap 17.1 (5-19); Potassium 4.1 mmol/L (3.5-5.1)
[2023-03-20] MEDS: LORazepam 2 mg/mL INJ 1 mL 0.5 MG IM (18:04)
[2023-03-20 18:27] VITALS: BP 126/72; PULSE 78; RESP 18; O2SAT 97
== END 2023-03-20 18:32 | disposition home or self-care (01) ==
PROVIDERS: Family Medicine; Emergency Provider Emergency Medicine; PCP Family Medicine
DX: K59.00 Constipation, unspecified (principal); Z85.3 Personal history of malignant neoplasm of breast
CPT/HCPCS: 36415; 74018; 80053; 85025; 96372; 99284; J2060

== ENCOUNTER → 2023-03-21 11:09 | Outpatient (BNVA) | payer MEDICARE, SELFPAY | PROVIDERS: PCP Family Medicine; Visit Provider Surgery | DX: Z90.13 Acquired absence of bilateral breasts and nipples (principal); C50.911 Malignant neoplasm of unspecified site of right female breast; C50.912 Malignant neoplasm of unspecified site of left female breast; Z17.0 Estrogen receptor positive status [ER+] | CPT/HCPCS: 99213 ==

== ENCOUNTER 2023-03-22 13:15 | Oncology outpatient (recurring) (ONCR) | payer MEDICARE, MEDICAID, SELFPAY ==
[2023-03-15 08:36] VITALS: BP 113/70; PULSE 85; RESP 17; TEMP 37.6; O2SAT 100
[2023-03-15 08:48] LABS: Basophils # 0.1 10^3/uL (0.0-0.1); Basophils % 0.8 %; Eosinophils # 0.1 10^3/uL (0.0-0.8); Eosinophils % 1.2 %; Hematocrit 43.5 % (37.0-47.0); Hemoglobin 13.7 g/dL (11.5-15.3); Lymphocytes # 1.5 10^3/uL (0.8-4.8); Lymphocytes % 22.3 %; Mean Corpuscular HGB Conc 31.5 g/dL (30.0-36.0); Mean Corpuscular Hemoglobin 29.5 pg (28.0-34.0); Mean Corpuscular Volume 93.8 fl (81-99); Mean Platelet Volume 9.8 fL (7.4-10.4); Monocytes # 0.6 10^3/uL (0.2-0.9); Monocytes % 8.8 %; Neutrophils # 4.33 10^3/uL (1.8-7.7); Neutrophils % 66.6 %; Nucleated Red Blood Cells % 0 %; Platelet Count 269 10^3/cmm (130-400); Red Blood Count 4.64 10^6/uL (4.1-5.3); Red Cell Distribution Width 13.8 % (12.1-15.1); White Blood Count 6.5 10^3/uL (4.0-10.0)
[2023-03-15 09:21] LABS: Alanine Aminotransferase 13 U/L (0-33); Albumin Level 3.6 g/dL (3.5-5.2); Alkaline Phosphatase 87 U/L (35-105); Aspartate Amino Transferase 16 U/L (0-32); Blood Urea Nitrogen 27 mg/dL (8-23); Calcium 9.3 mg/dL (8.5-10.5); Carbon Dioxide 27 mmol/L (22-29); Chloride 104 mmol/L (98-107); Globulin 2.7 g/dL (1.3-4.6); Glucose 163 mg/dL (65-115); Osmolality Calculated 301 mOsm/kg (285-295); Sodium 141 mmol/L (136-145); Total Bilirubin 0.4 mg/dL (0.15-1.2); Total Protein 6.3 g/dL (6.6-8.7)
[2023-03-22 13:03] VITALS: BP 111/66; PULSE 84; RESP 18; TEMP 36.7; O2SAT 99
[2023-03-22 14:09] LABS: Alanine Aminotransferase 21 U/L (0-33); Albumin Level 3.4 g/dL (3.5-5.2); Alkaline Phosphatase 76 U/L (35-105); Anion Gap 15.7 (5-19); Aspartate Amino Transferase 13 U/L (0-32); Blood Urea Nitrogen 22 mg/dL (8-23); Calcium 8.9 mg/dL (8.5-10.5); Carbon Dioxide 20 mmol/L (22-29); Chloride 106 mmol/L (98-107); Globulin 2.6 g/dL (1.3-4.6); Glucose 170 mg/dL (65-115); Osmolality Calculated 293 mOsm/kg (285-295); Potassium 3.7 mmol/L (3.5-5.1); Sodium 138 mmol/L (136-145); Total Bilirubin 0.4 mg/dL (0.15-1.2)
== END 2023-03-30 23:59 | disposition home or self-care (01) ==
PROVIDERS: Internal Medicine Medical Oncology; PCP Family Medicine; Visit Provider Radiology Radiation Oncology
DX: C50.811 Malignant neoplasm of overlapping sites of right female breast (principal); C50.812 Malignant neoplasm of overlapping sites of left female breast; Z17.0 Estrogen receptor positive status [ER+]; C77.3 Secondary and unspecified malignant neoplasm of axilla and upper limb lymph nodes; Z79.811 Long term (current) use of aromatase inhibitors; Z90.13 Acquired absence of bilateral breasts and nipples; Z79.899 Other long term (current) drug therapy
CPT/HCPCS: 36415; 80053; 85025; 99214; 99215

== ENCOUNTER 2023-06-15 10:28 | Emergency (ER) | payer MEDICARE, MEDICAID, SELFPAY ==
[2023-06-15 10:58] VITALS: BP 92/63; PULSE 107; RESP 16; TEMP 36.8; O2SAT 97; BMI 14.8
[2023-06-15 11:53] LABS: Basophils # 0.1 10^3/uL (0.0-0.1); Basophils % 0.4 %; Hematocrit 47.2 % (36-47); Lymphocytes # 0.4 10^3/uL (0.8-4.8); Lymphocytes % 3.4 %; Mean Corpuscular HGB Conc 31.6 g/dL (30-55); Mean Corpuscular Hemoglobin 29.7 pg (27-33); Mean Platelet Volume 9.6 fL (7.4-10.4); Monocytes # 0.6 10^3/uL (0.2-0.9); Monocytes % 5.2 %; Neutrophils % 90.6 %; Nucleated Red Blood Cells % 0 %; Platelet Count 265 10^3/cmm (157-399); Red Blood Count 5.02 10^6/uL (3.85-5.65); Red Cell Distribution Width 14.4 % (12.1-15.1); White Blood Count 11.25 10^3/uL (3.29-11.43)
--- NOTE | 2023-06-15 12:07 | ED_ITS ---
HPI - Nausea/Vomiting/Diarrhea General: Chief complaint: Nausea/Vomiting/Diarrhea Stated complaint: N/V/D Time Seen by Provider: 06/15/23 11:59 Source: patient Mode of arrival: ambulatory History of Present Illness: 87-year-old female with history of breast CA reading the oncology notes that she was at stage IV I had difficulty with biopsies most latest oncology note is that the patient did not wish to pursue any more treatments and essentially was having a goal of comfort care she had been on Arimidex there was concern of p ossible extension of her breast cancer. Chest pain on the right lower anterior chest wall worse with deep breath worse with coughing or sneezing she does not notice any associated with eating or drinking. She has had some mucus production she is not sure if she is vomiting or coughing up sputum. She denied any hematemesis coffee-ground emesis melena no hemoptysis MD elicited complaint: nausea and vomiting Onset (ago): week(s) Associated nausea: No Location of pain: Chest Pain consistency: constant Severity: mild Quality: sharp Exacerbating factors: movement Relieving factors: rest Associated symtoms: Reports chest pain, cough and anorexia; Denies altered mental status, anxiety, bloating, change in vision, diaphoresis, decreased urine output, dizziness, dysuria, epistaxis, fatigue, fecal incontinence, fevers/chills, headache(s), malaise, myalgias, nausea, numbness, palpitations, rash, short of breath, syncope, tenesmus, tinnitus or weakness Review of Systems Const: Denies: fever(s), chills, fatigue, malaise or diaphoresis Eyes: Denies: change in vision ENMT: Denies: tinnitus or epistaxis Card: Reports: chest pain; Denies: palpitations or syncope Resp: Denies: dyspnea GI: Denies: abdominal pain, nausea, bloating or fecal incontinence : Denies: dysuria, urinary frequency or urinary urgency Musc: Denies: neck pain or back pain Skin/Breast: Denies: rash Neuro: Denies: headache(s) or dizziness Psych: Denies: anxiety PFSH ED PFSH: Medical History 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, estrogen receptor positive Mass of right breast Surgical History History of partial gastrectomy Hx of bilateral mastectomy right modified radical mastectomy and left mastectomy with sentinel lymph node bx Hx of tonsillectomy Social History Smoking and tobacco/nicotine status: never used tobacco/nicotine Alcohol intake: never Substance/Drug Use: never Female Reproductive History: Spontaneous abortions: No Physical Exam Const: COMMON NORMALS: no acute distress EXAM LIMITATIONS: no altered mental status GENERAL APPEARANCE: cooperative and comfortable ORIENTATION/CONSCIOUSNESS: Yes awake, Yes oriented to person, Yes oriented to place and Yes oriented to time HENMT: COMMON NORMALS: normocephalic, atraumatic and hearing grossly normal bilaterally HEAD & SCALP: normocephalic and atraumatic Resp: COMMON NORMALS: normal respiratory effort, No retractions, No use of accessory muscles and clear to auscultation bilaterally AUSCULTATION: clear to auscultation bilaterally Cardio: COMMON NORMALS: regular rate, regular rhythm and No murmurs present (Cardio) RATE: regular rate RHYTHM: regular rhythm GI: COMMON NORMALS: Soft to palpation and No hepatosplenomegaly present AUSCULTATION: Yes normoactive bowel sounds PALPATION: Yes Soft to palpation, No Tenderness to palpation present (GI), No Guarding due to palpation present (GI) and Yes No hepatosplenomegaly present Extremity: COMMON NORMALS: normal to inspection, capillary refill normal, no clubbing, cyanosis or edema, no calf tenderness and no pedal edema Neuro: SENSORIUM/ORIENTATION: Yes oriented to person, Yes oriented to place and Yes oriented to time Skin: COMMON NORMALS: no rashes or lesions noted GENERAL SKIN EXAM: no rashes or lesions noted Course Vital Signs: Vital signs: Vital Signs Temperature 98.3 F 06/15/23 10:58 Pulse Rate 107 H 06/15/23 10:58 Respiratory Rate 18 06/15/23 13:20 Blood Pressure 184/88 06/15/23 14:01 Pulse Oximetry 97 06/15/23 10:58 MDM - Nausea/Vomiting/Diarrhea Medical Decision Making Patient has had breast cancer per the patient and the family has metastasized to the chest wall. She has chronic pain in her chest. Labs and imaging reviewed. Extensive discussion with the family ultimately we decided they would like to proceed to comfort care. They related that they have been told there is not really much options for treatments. Family wishes and patient also wishes to basically have symptoms treated to make sure she is comfortable discharge home consult hospice initial hospice care pack given at the time of discharge Medical Records I reviewed the patient's medical records. Lab Data I reviewed the patient's lab results. 06/15/23 11:44 06/15/23 11:44 Laboratory Results WBC 11.25 10^3/uL (3.29-11.43) 06/15/23 11:44 RBC 5.02 10^6/uL (3.85-5.65) 06/15/23 11:44 Hgb 14.90 g/dL (11.27-16.99) 06/15/23 11:44 Hct 47.2 % (36-47) H 06/15/23 11:44 MCV 94.0 fl (85-98) 06/15/23 11:44 MCH 29.7 pg (27-33) 06/15/23 11:44 MCHC 31.6 g/dL (30-55) 06/15/23 11:44 RDW 14.4 % (12.1-15.1) 06/15/23 11:44 Plt Count 265 10^3/cmm (157-399) 06/15/23 11:44 MPV 9.6 fL (7.4-10.4) 06/15/23 11:44 Neut % (Auto) 90.6 % 06/15/23 11:44 Lymph % (Auto) 3.4 % 06/15/23 11:44 [place] % (Auto) 5.2 % 06/15/23 11:44 Eos % (Auto) 0.0 % 06/15/23 11:44 Baso % (Auto) 0.4 % 06/15/23 11:44 Neut # (Auto) 10.20 10^3/uL (1.8-7.7) H 06/15/23 11:44 Lymph # (Auto) 0.4 10^3/uL (0.8-4.8) L 06/15/23 11:44 [place] # (Auto) 0.6 10^3/uL (0.2-0.9) 06/15/23 11:44 Eos # (Auto) 0.0 10^3/uL (0.0-0.8) 06/15/23 11:44 Baso # (Auto) 0.1 10^3/uL (0.0-0.1) 06/15/23 11:44 Nucleated RBC % (auto) 0 % 06/15/23 11:44 Nucleated RBCs # 0.0 /100WBC 06/15/23 11:44 Sodium 140 mmol/L (136-145) 06/15/23 11:44 Potassium 4.6 mmol/L (3.5-5.1) 06/15/23 11:44 Chloride 101 mmol/L (98-107) 06/15/23 11:44 Carbon Dioxide 24 mmol/L (22-29) 06/15/23 11:44 Anion Gap 19.6 (5-19) H 06/15/23 11:44 BUN 23 mg/dL (8-23) 06/15/23 11:44 Creatinine 1.0 mg/dL (0.5-0.9) H 06/15/23 11:44 GFR Calculation Not Reportable 06/15/23 11:44 Glucose 145 mg/dL (65-115) H 06/15/23 11:44 Calculated Osmolality 296 mOsm/kg (285-295) H 06/15/23 11:44 Calcium 9.7 mg/dL (8.5-10.5) 06/15/23 11:44 Magnesium 2.2 mg/dL (1.7-2.3) 06/15/23 11:44 Total Bilirubin 0.8 mg/dL (0.15-1.2) 06/15/23 11:44 AST 15 U/L (0-32) 06/15/23 11:44 ALT 14 U/L (0-33) 06/15/23 11:44 Alkaline Phosphatase 82 U/L (35-105) 06/15/23 11:44 Total Protein 6.5 g/dL (6.6-8.7) L 06/15/23 11:44 Albumin 3.7 g/dL (3.5-5.2) 06/15/23 11:44 Globulin 2.8 g/dL (1.3-4.6) 06/15/23 11:44 All radiology interpretation(s) finalized by discharge Discharge Plan Discharge Patient Disposition: Home Clinical Impression: 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 atropine 1 % Drops 4 drp sublingual Q4H PRN (Reason: Secretions) Qty: 5 0RF Rx Instructions: 4 drops SL q 4 hours PRN for terminal congestion/excessive secretions. ondansetron 4 mg Tablet,Disintegrating 4 mg translingual Q4H PRN (Reason: Nausea) Qty: 5 0RF Rx Instructions: Dissolve 1 tablet under tongue every 4 hours PRN for nausea lorazepam 2 mg/mL Concentrate 2 mg sublingual Q4H PRN (Reason: Anxiety/Seizure) Qty: 30 0RF Rx Instructions: 0.25ml-1ml q4H PRN Anxiety/Seizure Start 0.25ml may increase to 0.5ml-1ml q4H No Action oxycodone-acetaminophen 5-325 mg tablet 1 tab PO .COMPLEX PRN (Reason: pain) 30 Days Qty: 60 0RF Rx Instructions: 1 tab orally every 4 to 6 hours PRN; ondansetron 4 mg tablet,disintegrating 4 mg PO Q8H Qty: 30 2RF ondansetron 4 mg tablet,disintegrating 4 mg translingual Q4H PRN (Reason: nausea) Qty: 5 0RF Rx Instructions: Dissolve 1 tablet under tongue every 4 hours PRN for nausea lorazepam 2 mg/mL concentrate 2 mg sublingual Q4H PRN (Reason: Anxiety/Seizure) Qty: 30 0RF Rx Instructions: 0.25ml-1ml q4H PRN Anxiety/Seizure Start 0.25ml may increase to 0.5ml-1ml q4H morphine concentrate 100 mg/5 mL (20 mg/mL) solution 20 mg sublingual DIRECTED PRN (Reason: Pain/SOB) 14 Days Qty: 30 0RF Rx Instructions: 0.25ml-1ml q1H PRN may increase to 0.5ml-1ml Q1H PRN bisacodyl 10 mg suppository 10 mg [place] DAILY PRN (Reason: constipation) Qty: 5 0RF Rx Instructions: 1 suppository per rectum every day PRN for constipation. atropine 1 % drops 4 drp sublingual Q4H PRN (Reason: secretions) Qty: 5 0RF Rx Instructions: 4 drops SL q 4 hours PRN for terminal congestion/excessive secretions. Discharge Orders: Discharge ED (Routine); Ordered 06/15/23 Ordered By: Paul Garcia Referrals: Eleuterio Morgan, DO [Primary Care Provider] - Discharge Diet: Advance as tolerated Discharge Activity: Increase activity as tolerated Patient Instructions: Opioid Safety, Pain Management Activity Restrictions/Additional Instructions: Thank you for choosing [facility] for your healthcare needs today. Please realize this is an emergency room and that we are providing you with a medical screening exam and this may not be complete and all inclusive of all the testing and or work up that you may need to determine your ailment or severity of your illness. It is very important that you follow up as instructed or that you return to the Emergency Department should you have concerns or if your cond ition changes or worsens in any way. Hospice service will meet you in your home to evaluate and enroll you in hospice. Coding Level of Care Code ED Customer Response Representative for Marty Kaye
[2023-06-15 12:10] LABS: Alanine Aminotransferase 14 U/L (0-33); Albumin Level 3.7 g/dL (3.5-5.2); Alkaline Phosphatase 82 U/L (35-105); Anion Gap 19.6 (5-19); Aspartate Amino Transferase 15 U/L (0-32); Blood Urea Nitrogen 23 mg/dL (8-23); Calcium 9.7 mg/dL (8.5-10.5); Carbon Dioxide 24 mmol/L (22-29); Chloride 101 mmol/L (98-107); Globulin 2.8 g/dL (1.3-4.6); Glucose 145 mg/dL (65-115); Magnesium 2.2 mg/dL (1.7-2.3); Osmolality Calculated 296 mOsm/kg (285-295); Potassium 4.6 mmol/L (3.5-5.1); Sodium 140 mmol/L (136-145); Total Bilirubin 0.8 mg/dL (0.15-1.2); Total Protein 6.5 g/dL (6.6-8.7)
[2023-06-15 12:19] VITALS: RESP 18
[2023-06-15 13:20] VITALS: RESP 18
[2023-06-15] MEDS: morphine 4 mg/mL SDV 1 mL IVP (13:20)
[2023-06-15] MEDS: sodium chloride 0.9% 1,000 ML 999 ML IV (13:20)
[2023-06-15] MEDS: ondansetron 2 mg/ML SDV 2 mL 4 MG IVP (13:20)
--- NOTE | 2023-06-15 13:24 | XR_ITS ---
WS: [id number] Exam: XR chest 1V portable [id number] Date/Time of Exam: 06/15/2023 1:37 PM Reason For Exam: chest pain/breast CA Comparison 03/12/2023. The lungs are clear and fully expanded. Normal cardiomediastinal silhouette. Surgical clips seen over the RIGHT and LEFT chest. Bilateral mastectomy. Osseous structures are unremarkable. IMPRESSION: 1. No acute cardiopulmonary finding. 2. Status post bilateral mastectomy.
--- NOTE | 2023-06-15 13:26 | PC.PHAR ---
PT AND PTS FAMILY ST PTS DOCTOR TOLD HER QUITE TAKING ALL HER MEDICATIONS WITH THE EXCEPTION OF OXYCODONE AND ZOFRAN
[2023-06-15] MEDS: metoclopramide 5 mg/mL SDV 2 mL 10 MG IVP (13:59)
[2023-06-15] MEDS: morphine 4 mg/mL SDV 1 mL 2 MG IVP (13:59)
[2023-06-15 14:01] VITALS: BP 184/88
== END 2023-06-15 15:30 | disposition home or self-care (01) ==
PROVIDERS: Emergency Medicine; Emergency Provider Family Medicine; PCP Family Medicine
DX: C50.912 Malignant neoplasm of unspecified site of left female breast (principal); C50.911 Malignant neoplasm of unspecified site of right female breast; Z17.0 Estrogen receptor positive status [ER+]; R07.89 Other chest pain
CPT/HCPCS: 36415; 71045; 80053; 83735; 85025; 96374; 96375; 96376; 99284; J2270; J2405; J2765; J7030